=== PATIENT | female | born 1930 | race African-American/Black ===

== ENCOUNTER 2016-11-15 19:45 | Inpatient (IN) | payer MEDICARE, OTHER ==
[~2016-11-15] VITALS: Ht 160 cm; Wt 85.3 kg
[2016-11-16] VITALS: BP 172/76
[2016-11-16] MEDS ORDERED: ASPIR 8181 MG ORAL (00:11)
[2016-11-16] MEDS ORDERED: VITAMIN D400 INTLU ORAL (00:11)
[2016-11-16] MEDS ORDERED: CARVEDILOL6.25 MG ORAL (00:11)
[2016-11-16] MEDS ORDERED: FUROSEMIDE20 M1 ORAL (00:11)
[2016-11-16] MEDS ORDERED: LISINOPRIL40 MG ORAL (00:11)
[2016-11-16] MEDS ORDERED: PREVACID30 MG ORAL (00:11)
[2016-11-16] MEDS ORDERED: PLAVIX75 MG ORAL (00:11)
[2016-11-16] MEDS ORDERED: COREG12.5 MG ORAL (00:11)
[2016-11-16] MEDS ORDERED: LATANOPROST2.5 ML BOTH EYES (00:11)
[2016-11-16] MEDS ORDERED: BRIMONIDINE TART5 ML BOTH EYES (00:11)
[2016-11-16 04:00] VITALS: BP 138/68
[2016-11-16 07:28] LABS: TROPONIN I < 0.30 ng/mL (<=0.30)
[2016-11-16 07:35] LABS: BASOPHILS % (AUTO) 1.3 % (0.0-2.0); EOSINOPHILS % (AUTO) 4.4 % (0.0-3.0); LYMPHOCYTES % (AUTO) 34.9 % (20.0-45.0); MEAN CORPUSCULAR HEMOGLOBIN 24.2 PG (27.0-31.0); MEAN CORPUSCULAR HGB CONC 30.2 G/DL (32.0-36.0); MEAN CORPUSCULAR VOLUME 80 FL (80-99); MEAN PLATELET VOLUME 4.8 FL (6.5-10.1); MONOCYTES % (AUTO) 12.1 % (1.0-10.0); NEUTROPHILS % (AUTO) 47.3 % (45.0-75.0); PLATELET COUNT 306 K/UL (150-450); RED BLOOD COUNT 4.23 M/UL (4.20-5.40); RED CELL DISTRIBUTION WIDTH 16.2 % (11.6-14.8); WHITE BLOOD COUNT 4.7 K/UL (4.8-10.8)
[2016-11-16 07:43] LABS: ALANINE AMINOTRANSFERASE 7 U/L (3-33); ALBUMIN/GLOBULIN RATIO 1.2 (1.0-2.7); ANION GAP 13 (5-15); ASPARTATE AMINO TRANSFERASE 13 U/L (5-40); CALCIUM 9.6 mg/dL (8.6-10.2); CARBON DIOXIDE 24 mEQ/L (20-30); CHLORIDE 102 mEQ/L (98-107); CHOLESTEROL 153 mg/dL (< 200); CHOLESTEROL/HDL RATIO 3.2 (3.3-4.4); CREATININE 1.2 mg/dL (0.5-0.9); HEMOLYSIS 2; LDL CHOLESTEROL (CALC.) 86 mg/dL (60-99); PHOSPHORUS 3.6 mg/dL (2.5-4.8); POTASSIUM 4.3 mEQ/L (3.4-4.9); SODIUM 139 mEQ/L (135-145); TOTAL PROTEIN 6.6 g/dL (6.6-8.7)
[2016-11-16 08:37] VITALS: BP 135/64
[2016-11-16] MEDS: Aspirin EC 81mg tab ORAL SCH (08:44)
[2016-11-16] MEDS: Carvedilol 12.5mg tab ORAL SCH (08:44)
[2016-11-16] MEDS: Lisinopril 20mg tab ORAL SCH (08:45)
[2016-11-16] MEDS: Brimonidine 0.2% Opth Sol BOTH EYES SCH (11:23)
--- NOTE | 2016-11-16 11:54 | History & Physical ---
History and Physical History & Physicial Dictated for Int Med-Dr Simmons no. [id number]. ETHAN NAM Nov 16, 2016 11:54
[2016-11-16 12:31] VITALS: BP 134/67
--- NOTE | 2016-11-16 14:57 | Consultation ---
History of Present Illness General Date patient seen: Nov 16, 2016 Reason for Consultation: inpatient manageemnt Present Illness HPI 86 year old female with hx of CAD, [place], TIA was [place] to [facility] [place] of flaccid face. She was thought to have TIA /CVA [place] [facility] [place] she is awake, comfortable and facial dropping has resolved meanwhile. Allergies: Coded Allergies: MOXIFLOXACIN (Verified Allergy, Unknown, 11/16/16) Medication History Scheduled Aspirin* (Aspir 81*), 81 MG ORAL DAILY, (Reported) Brimonidine Tartrate* (Alphagan*), 1 DROP BOTH EYES DAILY, (Reported) Clopidogrel Bisulfate* (Plavix*), 75 MG ORAL DAILY, (Reported) Furosemide* (Lasix*), 20 MG ORAL DAILY, (Reported) Lansoprazole* (Prevacid*), 30 MG ORAL DAILY, (Reported) Latanoprost* (Xalatan*), 1 DROP BOTH EYES BEDTIME, (Reported) Lisinopril* (Lisinopril*), 40 MG ORAL DAILY, (Reported) Vitamin D (Vitamin D3), 1,000 UNITS ORAL DAILY, (Reported) Miscellaneous Medications Carvedilol (Coreg), 12.5 MG ORAL, (Reported) Carvedilol* (Carvedilol*), 6.25 MG ORAL, (Reported) Patient History Healthcare decision maker Resuscitation status Full Code Advanced Directive on File No Past Medical/Surgical History Past Medical/Surgical History: (1) Hx of CABG (2) History of CVA (cerebrovascular accident) (3) HTN (hypertension) (4) Transient ischemic attack (TIA) Review of Systems All Other Systems: negative except mentioned in HPI Physical Exam General Appearance: WD/WN, lethargic Lines, tubes and drains: peripheral HEENT: normocephalic, atraumatic Neck: non-tender, normal alignment Respiratory/Chest: chest wall non-tender, lungs clear Breasts: no masses Cardiovascular/Chest: normal rate, regular rhythm Abdomen: normal bowel sounds, non tender Genitourinary/Rectal: normal genital exam, normal rectal exam Extremities: normal range of motion Skin Exam: normal pigmentation Last 24 Hour Vital Signs Date Time Temp Pulse Resp B/P (MAP) Pulse Ox O2 Delivery O2 Flow Rate FiO2 11/16/16 12:31 97.2 61 18 134/67 98 Room Air 11/16/16 08:45 135/64 11/16/16 08:44 95 135/64 11/16/16 08:37 97.5 95 18 135/64 97 Room Air 11/16/16 04:43 62 11/16/16 04:00 97.9 65 20 138/68 100 Room Air 11/16/16 00:00 97.5 86 20 172/76 100 Room Air 11/16/16 00:00 97.5 74 20 172/76 100 Room Air 11/15/16 23:15 78 Intake and Output 11/16/16 11/17/16 19:00 07:00 Intake Total 120 ml Balance 120 ml Intake Oral 120 ml # Voids 1 Laboratory Tests Test 11/16/16 05:35 White Blood Count 4.7 K/UL (4.8-10.8) L Red Blood Count 4.23 M/UL (4.20-5.40) Hemoglobin 10.2 G/DL (12.0-16.0) L Hematocrit 33.9 % (37.0-47.0) L Mean Corpuscular Volume 80 FL (80-99) Mean Corpuscular Hemoglobin 24.2 PG (27.0-31.0) L Mean Corpuscular Hemoglobin Concent 30.2 G/DL (32.0-36.0) L Red Cell Distribution Width 16.2 % (11.6-14.8) H Platelet Count 306 K/UL (150-450) Mean Platelet Volume 4.8 FL (6.5-10.1) L Neutrophils (%) (Auto) 47.3 % (45.0-75.0) Lymphocytes (%) (Auto) 34.9 % (20.0-45.0) Monocytes (%) (Auto) 12.1 % (1.0-10.0) H Eosinophils (%) (Auto) 4.4 % (0.0-3.0) H Basophils (%) (Auto) 1.3 % (0.0-2.0) Sodium Level 139 mEQ/L (135-145) Potassium Level 4.3 mEQ/L (3.4-4.9) Chloride Level 102 mEQ/L (98-107) Carbon Dioxide Level 24 mEQ/L (20-30) Anion Gap 13 (5-15) Blood Urea Nitrogen 26 mg/dL (7-23) H Creatinine 1.2 mg/dL (0.5-0.9) H Estimat Glomerular Filtration Rate mL/min (>60) Glucose Level 99 mg/dL (74-106) Calcium Level 9.6 mg/dL (8.6-10.2) Phosphorus Level 3.6 mg/dL (2.5-4.8) Magnesium Level 2.0 mg/dL (1.7-2.5) Total Bilirubin 0.3 mg/dL (0.0-1.2) Aspartate Amino Transf (AST/SGOT) 13 U/L (5-40) Alanine Aminotransferase (ALT/SGPT) 7 U/L (3-33) Alkaline Phosphatase 83 U/L (35-104) Troponin I < 0.30 ng/mL (<=0.30) Total Protein 6.6 g/dL (6.6-8.7) Albumin 3.6 g/dL (3.5-5.2) Globulin 3.0 g/dL Albumin/Globulin Ratio 1.2 (1.0-2.7) Triglycerides Level 95 mg/dL (< 150) Cholesterol Level 153 mg/dL (< 200) LDL Cholesterol 86 mg/dL (60-99) HDL Cholesterol 48 mg/dL (> 60) Cholesterol/HDL Ratio 3.2 (3.3-4.4) L Height (Feet): 5 Height (Inches): 3.00 Weight (Pounds): 188 Medications Current Medications Medications (Trade) Dose Ordered Sig/Jose Route PRN Reason Start Time Stop Time Status Last Admin Dose Admin Acetaminophen (Tylenol) 650 mg Q6H PRN ORAL Mild Pain/Temp > 100.5 11/16/16 00:15 12/16/16 00:14 Aspirin (Ecotrin) 81 mg DAILY ORAL 11/16/16 09:00 12/16/16 08:59 11/16/16 08:44 Atorvastatin Calcium (Lipitor) 80 mg BEDTIME ORAL 11/16/16 21:00 12/16/16 20:59 Brimonidine Tartrate (Alphagan) 1 drop DAILY BOTH EYES 11/16/16 09:00 12/16/16 08:59 11/16/16 11:23 Carvedilol (Coreg) 6.25 mg QHS ORAL 11/16/16 21:00 12/16/16 20:59 Carvedilol (Coreg) 12.5 mg DAILY ORAL 11/16/16 09:00 12/16/16 08:59 11/16/16 08:44 Clopidogrel Bisulfate (Plavix) 75 mg DAILY ORAL 11/16/16 09:00 12/16/16 08:59 11/16/16 08:44 Furosemide (Lasix) 20 mg DAILY ORAL 11/16/16 09:00 12/16/16 08:59 11/16/16 08:44 Latanoprost (Xalatan) 1 drop BEDTIME BOTH EYES 11/16/16 21:00 12/16/16 20:59 Lisinopril (Prinivil) 40 mg DAILY ORAL 11/16/16 09:00 12/16/16 08:59 11/16/16 08:45 Ondansetron HCl (Zofran) 4 mg Q6H PRN IVP Nausea & Vomiting 11/16/16 00:15 12/16/16 00:14 Pantoprazole (Protonix) 40 mg ACBREAKFAST ORAL 11/16/16 06:30 12/16/16 06:29 11/16/16 06:18 Assessment/Plan Problem List: (1) Acute encephalopathy ICD Codes: G93.40 - Encephalopathy, unspecified SNOMED: 9729708 (2) Cerebrovascular accident ICD Codes: I63.9 - Cerebral infarction, unspecified SNOMED: 363984463 (3) Hx of CABG ICD Codes: Z95.1 - Presence of aortocoronary bypass graft SNOMED: 867760335, 163080061 (4) HTN (hypertension) ICD Codes: I10 - Essential (primary) hypertension SNOMED: 41184553 (5) Transient ischemic attack (TIA) ICD Codes: G45.9 - Transient cerebral ischemic attack, unspecified SNOMED: 821375848, 829780849 (6) Uncontrolled hypertension ICD Codes: I10 - Essential (primary) hypertension SNOMED: 21252475 Assessment/Plan telemetry monitoring 2d echo doppler of carotid artery monitor BP ADARSH SHEPPARD Nov 16, 2016 14:57
--- NOTE | 2016-11-16 15:25 | Cardiology Report ---
APPROVED REPORT EXAM: Two-dimensional and M-mode echocardiogram with Doppler and color Doppler. INDICATION Trans ischemic attack M-Mode DIMENSIONS IVSd1.3 (0.7-1.1cm)Left Atrium (MM)3.5 (1.6-4.0cm) LVDd4.6 (3.5-5.6cm)Aortic Root2.7 (2.0-3.7cm) PWd1.3 (0.7-1.1cm)Aortic Cusp Exc.1.8 (1.5-2.0cm) LVDs2.6 (2.5-4.0cm) PWs1.5 cm Technically difficult study due to poor acoustic windows. Normal left ventricular chamber size, systolic function and wall motion. Left ventricular ejection fraction estimated to be 60-65%. Mild left ventricular hypertrophy. No evidence of pericardial fat or effusion. Right cardiac chamber sizes are within normal limits. Moderate left atrial enlargement by 2D. Focal aortic valve sclerosis with adequate cusp excursion Thickened mitral valve leaflets with normal excursion. Mitral annulus and aortic root calcification. Pulmonic valve not well visualized. Normal tricuspid valve structure. IVC is normal in size with physiologic collapse. A color flow and spectral Doppler study was performed and revealed: Trace aortic regurgitation. Trace mitral regurgitation. Normal left ventricular diastolic function. Trace tricuspid regurgitation. Tricuspid systolic velocities suggests peak right ventricular systolic pressure of 25 mmHg
--- NOTE | 2016-11-16 15:48 | Cardiology Report ---
APPROVED REPORT EKG Measurement Heart [id number] Normal sinus rhythm Left axis deviation Right bundle branch block T wave abnormality, consider inferolateral ischemia Abnormal ECG
[2016-11-16 16:07] VITALS: BP 125/62
--- NOTE | 2016-11-16 16:11 | Diagnostic Imaging Report ---
Indication: Altered mental status and weakness Technique: sagittal T1 fast spin echo, axial T1 FLAIR, axial T2 FLAIR, axial T2 FS PROPELLER, axial T2* GRE, axial diffusion weighted images. ADC and exponential ADC maps generated Comparison: None Findings: No abnormal areas of restricted diffusion to suggest acute infarction. No acute hemorrhage or edema. No mass effect nor midline shift. There is mild age-related enlargement of ventricles and extra axial CSF spaces. There are some periventricular T2 white matter hyperintensities. Tiny old lacunar infarct is seen within the periphery of the right cerebellar hemisphere. Visualized orbits and sinuses are unremarkable. Impression: Chronic and age-related changes, as described. Negative for acute intracranial bleed, mass effect, or infarct.
[2016-11-16 20:10] VITALS: BP 143/62
[2016-11-16] MEDS ORDERED: Carvedilol 6.25mg Tab ORAL SCH (21:00)
[2016-11-16] MEDS ORDERED: Atorvastatin 80mg tab ORAL SCH (21:00)
--- NOTE | 2016-11-16 22:45 | History and Physical Report ---
DATE OF ADMISSION: 11/15/2016 CHIEF COMPLAINT: The patient is an 86-year-old female, who presents with chief complaint of left facial weakness. HISTORY OF PRESENT ILLNESS: The patient has history of transient ischemic attack in July 2016. This was treated at [facility]. The patient has no residual effects of the TIA at that time. The patient presented to [facility] on 11/15/2016. The patient complained of several hour history of "tugging" in her left face. The patient states her face was not symmetrical in the mirror. The patient was transferred to [facility] for insurance purposes. The patient was admitted for left facial weakness to rule out transient ischemic attack. PAST MEDICAL HISTORY: Significant for: 1. Transient ischemic attack in July 2016 as above. 2. Hypertension. 3. Coronary artery disease, status post myocardial infarction at age 51. PAST SURGICAL HISTORY: Significant for coronary artery bypass graft in 1999. CURRENT MEDICATIONS: 1. Aspirin 81 mg one tablet p.o. daily. 2. Alphagan 0.1% ophthalmic drops one drop in both eyes every morning. 3. Xalatan one drop in both eyes nightly. 4. Lasix 20 mg one tablet p.o. daily. 5. Coreg 12.5 mg every morning and 6.25 mg every evening. 6. Lisinopril 40 mg one tablet p.o. daily. 7. Plavix 75 mg one tablet p.o. daily. 8. Prevacid 30 mg one tablet p.o. daily. 9. Vitamin D3 1000 units daily. ALLERGIES: To Avelox, which causes rash. SOCIAL HISTORY: The patient is single and lives with her adult daughter. The patient denies tobacco or alcohol use. REVIEW OF SYSTEMS: Constitutional: The patient denies weight loss or weight gain. The patient denies fevers or chills. HEENT: The patient denies ear or throat pain. The patient denies headache. Cardiovascular: The patient denies palpitation or chest pain. Chest: The patient denies wheeze or shortness of breath. Abdominal: The patient denies nausea, vomiting, diarrhea, or constipation. Genitourinary: The patient denies dysuria or increased frequency of urination. Neuromuscular: The patient complains of left facial weakness as above. The patient denies seizures or generalized weakness. PHYSICAL EXAMINATION: VITAL SIGNS: Temperature 97.5 degrees, respirations 20, pulse 74 to 86, and blood pressure 172/76. GENERAL: The patient is a well-developed, well-nourished, female, in no apparent distress. HEENT: Eyes: Pupils are equal and responsive to light and accommodation. Extraocular movements are intact. NECK: Supple without lymphadenopathy. CHEST: Lungs are clear to auscultation bilaterally without wheezes or rales. CARDIOVASCULAR: Regular rhythm and rate. S1 and S2 are normal without murmurs, rubs, or gallops. ABDOMEN: Soft, nontender, and nondistended. Positive bowel sounds. No evidence of hepatosplenomegaly. Currently, no rebound or guarding noted. EXTREMITIES: Negative for clubbing, cyanosis, or edema. RECTAL: Refused. GENITAL: Refused. NEUROLOGIC: Cranial nerves II to XII are grossly intact without focal deficits. Motor strength is 5/5 bilaterally. Deep tendon reflexes 2+ plantar. Smile is now symmetric. LABORATORY STUDIES: From [place], WBC 4.6, hemoglobin 10.7, hematocrit 32.9, and platelets 307,000. Sodium 134, potassium 4.7, chloride 103, CO2 23, BUN 25, creatinine 1.3, and glucose was 100. A CT scan of the brain was reported as no acute hemorrhage or infarct. ASSESSMENT: This is an 86-year-old female. 1. Left facial weakness. 2. History of cerebrovascular disease. 3. History of transient ischemic attack. 4. Coronary artery disease. 5. Hypertension. TREATMENT: 1. Left facial weakness. An MRI of the brain is pending. Neurology consultation has been obtained with Dr. Mohamud. This appears to be a transient ischemic attack versus cerebrovascular accident. An MRI has been ordered to rule out cerebrovascular accident. Carotid duplex and Dopplers are pending. An echocardiogram is pending. 2. Coronary artery disease. A Cardiology consultation has been obtained. Initial troponin level was normal. 3. Hypertension. Continue Coreg as above. Anuel Lea M.D. DR: Kandace JOB#: [id number] CC:
[2016-11-17] VITALS: BP 146/75
[2016-11-17 04:00] VITALS: BP 141/73
[2016-11-17 08:00] VITALS: BP 123/58
[2016-11-17] MEDS: Carvedilol 12.5mg tab ORAL SCH (08:22)
[2016-11-17] MEDS: Aspirin EC 81mg tab ORAL SCH (08:24)
[2016-11-17] MEDS: Lisinopril 20mg tab ORAL SCH (08:27)
[2016-11-17] MEDS: Brimonidine 0.2% Opth Sol BOTH EYES SCH (08:34)
[2016-11-17 08:47] LABS: BASOPHILS % (AUTO) 1.3 % (0.0-2.0); EOSINOPHILS % (AUTO) 3.9 % (0.0-3.0); LYMPHOCYTES % (AUTO) 40.3 % (20.0-45.0); MEAN CORPUSCULAR HEMOGLOBIN 25.7 PG (27.0-31.0); MEAN CORPUSCULAR HGB CONC 31.4 G/DL (32.0-36.0); MEAN CORPUSCULAR VOLUME 82 FL (80-99); NEUTROPHILS % (AUTO) 44.4 % (45.0-75.0); PLATELET COUNT 292 K/UL (150-450); RED BLOOD COUNT 4.13 M/UL (4.20-5.40); RED CELL DISTRIBUTION WIDTH 16.9 % (11.6-14.8); WHITE BLOOD COUNT 4.1 K/UL (4.8-10.8)
[2016-11-17 09:12] LABS: ANION GAP 11 (5-15); CALCIUM 9.7 mg/dL (8.6-10.2); CARBON DIOXIDE 24 mEQ/L (20-30); CHLORIDE 103 mEQ/L (98-107); CREATININE 1.2 mg/dL (0.5-0.9); HEMOLYSIS 1; POTASSIUM 4.1 mEQ/L (3.4-4.9); SODIUM 138 mEQ/L (135-145)
[2016-11-17 09:41] LABS: LACTATE DEHYDROGENASE 162 U/L (135-230)
[2016-11-17 09:42] LABS: HEMOLYSIS 2; IRON 29 ug/dL (37-145); TOTAL IRON BINDING CAPACITY 355 ug/dL (250-400)
[2016-11-17 09:43] LABS: TROPONIN I < 0.30 ng/mL (<=0.30)
[2016-11-17 09:59] LABS: ERYTHROCYTE SEDIMENTATION RATE 30 MM/HR (0-42)
[2016-11-17 10:13] LABS: RETICULOCYTE COUNT 1.3 % (0.0-2.0)
[2016-11-17 10:21] LABS: BASOPHILS % (MANUAL) 1 % (0-2); EOSINOPHILS % (MANUAL) 2 % (0-3); LYMPHOCYTES % (MANUAL) 43 % (20-45); NEUTROPHILS % (MANUAL) 49 % (45-75); TOTAL CELLS COUNTED 100
[2016-11-17 10:22] LABS: ANISOCYTOSIS 1+; BAND NEUTROPHILS % (MANUAL) 0 % (0-8); HYPOCHROMASIA 1+; PLATELET ESTIMATE ADEQUATE; PLATELET MORPHOLOGY NORMAL
[2016-11-17 10:44] LABS: PATH BLOOD SMEAR/OMC SENT TO PATHOLOGIST
[2016-11-17 12:00] VITALS: BP 130/55
--- NOTE | 2016-11-17 13:13 | Pulmonology Progress Note ---
Assessment/Plan Problems: (1) Acute encephalopathy (2) Cerebrovascular accident (3) Hx of CABG (4) HTN (hypertension) (5) Transient ischemic attack (TIA) (6) Uncontrolled hypertension (7) Anemia Assessment/Plan pt/ot monitor bp anemia w/u in process OB pending neuro consult appreciated Subjective ROS Limited/Unobtainable: No Constitutional: Reports: no symptoms HEENT: Repors: no symptoms Allergies: Coded Allergies: MOXIFLOXACIN (Verified Allergy, Unknown, 11/16/16) Objective Last 24 Hour Vital Signs Date Time Temp Pulse Resp B/P (MAP) Pulse Ox O2 Delivery O2 Flow Rate FiO2 11/17/16 12:00 97.8 56 18 130/55 100 Room Air 11/17/16 08:27 123/58 11/17/16 08:22 65 123/58 11/17/16 08:00 97.5 65 18 123/58 100 Room Air 11/17/16 04:00 54 11/17/16 04:00 97.7 66 20 141/73 98 Room Air 11/17/16 00:00 71 11/17/16 00:00 97.9 68 18 146/75 97 Room Air 11/16/16 20:10 97.9 64 19 143/62 98 Room Air 11/16/16 20:09 63 125/62 11/16/16 16:07 97.2 63 18 125/62 99 Room Air 11/16/16 16:00 62 Intake and Output 11/17/16 11/18/16 19:00 07:00 Intake Total 350 ml Balance 350 ml Intake Oral 350 ml # Voids 1 # Bowel Movements 1 General Appearance: WD/WN HEENT: normocephalic, atraumatic Respiratory/Chest: chest wall non-tender, lungs clear Breasts: no masses Cardiovascular: normal peripheral pulses, normal rate Abdomen: normal bowel sounds, soft, non tender Genitourinary: normal external genitalia Extremities: no cyanosis Skin: no rash 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, no motor/sensory deficits Lymphatic: no neck adenopathy Laboratory Tests 11/17/16 07:40: White Blood Count 4.1L, Red Blood Count 4.13L, Hemoglobin 10.6L, Hematocrit 33.7L, Mean Corpuscular Volume 82, Mean Corpuscular Hemoglobin 25.7L, Mean Corpuscular Hemoglobin Concent 31.4L, Red Cell Distribution Width 16.9H, Platelet Count 292, Mean Platelet Volume 5.0L, Neutrophils (%) (Auto) 44.4L, Lymphocytes (%) (Auto) 40.3, Monocytes (%) (Auto) 10.0, Eosinophils (%) (Auto) 3.9H, Basophils (%) (Auto) 1.3, Differential Total Cells Counted 100, Neutrophils % (Manual) 49, Lymphocytes % (Manual) 43, Monocytes % (Manual) 5, Eosinophils % (Manual) 2, Basophils % (Manual) 1, Band Neutrophils 0, Platelet Estimate Adequate, Platelet Morphology Normal, Hypochromasia 1+, Anisocytosis 1+ , Erythrocyte Sedimentation Rate 30, Reticulocyte Count 1.3, Prothrombin Time 10.0, Prothromb Time International Ratio 1.0, Activated Partial Thromboplast Time 25, Sodium Level 138, Potassium Level 4.1, Chloride Level 103, Carbon Dioxide Level 24, Anion Gap 11, Blood Urea Nitrogen 27H, Creatinine 1.2H, Estimat Glomerular Filtration Rate , Glucose Level 135H, Calcium Level 9.7, Iron Level 29L, Total Iron Binding Capacity 355, Percent Iron Saturation 8L, Unsaturated Iron Binding 326, Lactate Dehydrogenase 162, Troponin I < 0.30, Carcinoembryonic Antigen 1.8, Vitamin B12 Level 482, Folate [Pending] 11/17/16 11:00: Stool Occult Blood [Pending] Current Medications Medications (Trade) Dose Ordered Sig/Jose Route PRN Reason Start Time Stop Time Status Last Admin Dose Admin Acetaminophen (Tylenol) 650 mg Q6H PRN ORAL Mild Pain/Temp > 100.5 11/16/16 00:15 12/16/16 00:14 Aspirin (Ecotrin) 81 mg DAILY ORAL 11/16/16 09:00 12/16/16 08:59 11/17/16 08:24 Atorvastatin Calcium (Lipitor) 80 mg BEDTIME ORAL 11/16/16 21:00 12/16/16 20:59 11/16/16 20:09 Brimonidine Tartrate (Alphagan) 1 drop DAILY BOTH EYES 11/16/16 09:00 12/16/16 08:59 11/17/16 08:34 Carvedilol (Coreg) 6.25 mg QHS ORAL 11/16/16 21:00 12/16/16 20:59 11/16/16 20:09 Carvedilol (Coreg) 12.5 mg DAILY ORAL 11/16/16 09:00 12/16/16 08:59 11/17/16 08:22 Clopidogrel Bisulfate (Plavix) 75 mg DAILY ORAL 11/16/16 09:00 12/16/16 08:59 11/17/16 08:26 Furosemide (Lasix) 20 mg DAILY ORAL 11/16/16 09:00 12/16/16 08:59 11/17/16 08:25 Latanoprost (Xalatan) 1 drop BEDTIME BOTH EYES 11/16/16 21:00 12/16/16 20:59 11/16/16 20:29 Lisinopril (Prinivil) 40 mg DAILY ORAL 11/16/16 09:00 12/16/16 08:59 11/17/16 08:27 Ondansetron HCl (Zofran) 4 mg Q6H PRN IVP Nausea & Vomiting 11/16/16 00:15 12/16/16 00:14 Pantoprazole (Protonix) 40 mg ACBREAKFAST ORAL 11/16/16 06:30 12/16/16 06:29 11/17/16 05:36 ADARSH SHEPPARD Nov 17, 2016 13:13
--- NOTE | 2016-11-17 13:17 | Pulmonology Progress Note ---
Assessment/Plan Problems: (1) Acute encephalopathy (2) Cerebrovascular accident (3) Hx of CABG (4) HTN (hypertension) (5) Transient ischemic attack (TIA) (6) Uncontrolled hypertension (7) Anemia Assessment/Plan pt/ot monitor bp anemia w/u in process OB pending neuro consult appreciated med/surg MRI of brain Impression: Chronic and age-related changes, as described. Negative for acute intracranial bleed, mass effect, or infarct. Subjective ROS Limited/Unobtainable: No Constitutional: Reports: no symptoms HEENT: Repors: no symptoms Respiratory: Reports: no symptoms Allergies: Coded Allergies: MOXIFLOXACIN (Verified Allergy, Unknown, 11/16/16) Objective Last 24 Hour Vital Signs Date Time Temp Pulse Resp B/P (MAP) Pulse Ox O2 Delivery O2 Flow Rate FiO2 11/17/16 12:00 97.8 56 18 130/55 100 Room Air 11/17/16 08:27 123/58 11/17/16 08:22 65 123/58 11/17/16 08:00 97.5 65 18 123/58 100 Room Air 11/17/16 04:00 54 11/17/16 04:00 97.7 66 20 141/73 98 Room Air 11/17/16 00:00 71 11/17/16 00:00 97.9 68 18 146/75 97 Room Air 11/16/16 20:10 97.9 64 19 143/62 98 Room Air 11/16/16 20:09 63 125/62 11/16/16 16:07 97.2 63 18 125/62 99 Room Air 11/16/16 16:00 62 Intake and Output 11/17/16 11/18/16 19:00 07:00 Intake Total 350 ml Balance 350 ml Intake Oral 350 ml # Voids 1 # Bowel Movements 1 General Appearance: WD/WN HEENT: normocephalic, atraumatic Respiratory/Chest: chest wall non-tender, lungs clear, normal breath sounds Breasts: no masses Cardiovascular: normal peripheral pulses Abdomen: normal bowel sounds Genitourinary: normal external genitalia Extremities: no cyanosis Skin: no rash Lymphatic: no neck adenopathy Laboratory Tests 11/17/16 07:40: White Blood Count 4.1L, Red Blood Count 4.13L, Hemoglobin 10.6L, Hematocrit 33.7L, Mean Corpuscular Volume 82, Mean Corpuscular Hemoglobin 25.7L, Mean Corpuscular Hemoglobin Concent 31.4L, Red Cell Distribution Width 16.9H, Platelet Count 292, Mean Platelet Volume 5.0L, Neutrophils (%) (Auto) 44.4L, Lymphocytes (%) (Auto) 40.3, Monocytes (%) (Auto) 10.0, Eosinophils (%) (Auto) 3.9H, Basophils (%) (Auto) 1.3, Differential Total Cells Counted 100, Neutrophils % (Manual) 49, Lymphocytes % (Manual) 43, Monocytes % (Manual) 5, Eosinophils % (Manual) 2, Basophils % (Manual) 1, Band Neutrophils 0, Platelet Estimate Adequate, Platelet Morphology Normal, Hypochromasia 1+, Anisocytosis 1+ , Erythrocyte Sedimentation Rate 30, Reticulocyte Count 1.3, Prothrombin Time 10.0, Prothromb Time International Ratio 1.0, Activated Partial Thromboplast Time 25, Sodium Level 138, Potassium Level 4.1, Chloride Level 103, Carbon Dioxide Level 24, Anion Gap 11, Blood Urea Nitrogen 27H, Creatinine 1.2H, Estimat Glomerular Filtration Rate , Glucose Level 135H, Calcium Level 9.7, Iron Level 29L, Total Iron Binding Capacity 355, Percent Iron Saturation 8L, Unsaturated Iron Binding 326, Lactate Dehydrogenase 162, Troponin I < 0.30, Carcinoembryonic Antigen 1.8, Vitamin B12 Level 482, Folate [Pending] 11/17/16 11:00: Stool Occult Blood Negative Current Medications Medications (Trade) Dose Ordered Sig/Jose Route PRN Reason Start Time Stop Time Status Last Admin Dose Admin Acetaminophen (Tylenol) 650 mg Q6H PRN ORAL Mild Pain/Temp > 100.5 11/16/16 00:15 12/16/16 00:14 Aspirin (Ecotrin) 81 mg DAILY ORAL 11/16/16 09:00 12/16/16 08:59 11/17/16 08:24 Atorvastatin Calcium (Lipitor) 80 mg BEDTIME ORAL 11/16/16 21:00 12/16/16 20:59 11/16/16 20:09 Brimonidine Tartrate (Alphagan) 1 drop DAILY BOTH EYES 11/16/16 09:00 12/16/16 08:59 11/17/16 08:34 Carvedilol (Coreg) 6.25 mg QHS ORAL 11/16/16 21:00 12/16/16 20:59 11/16/16 20:09 Carvedilol (Coreg) 12.5 mg DAILY ORAL 11/16/16 09:00 12/16/16 08:59 11/17/16 08:22 Clopidogrel Bisulfate (Plavix) 75 mg DAILY ORAL 11/16/16 09:00 12/16/16 08:59 11/17/16 08:26 Furosemide (Lasix) 20 mg DAILY ORAL 11/16/16 09:00 12/16/16 08:59 11/17/16 08:25 Latanoprost (Xalatan) 1 drop BEDTIME BOTH EYES 11/16/16 21:00 12/16/16 20:59 11/16/16 20:29 Lisinopril (Prinivil) 40 mg DAILY ORAL 11/16/16 09:00 12/16/16 08:59 11/17/16 08:27 Ondansetron HCl (Zofran) 4 mg Q6H PRN IVP Nausea & Vomiting 11/16/16 00:15 12/16/16 00:14 Pantoprazole (Protonix) 40 mg ACBREAKFAST ORAL 11/16/16 06:30 12/16/16 06:29 11/17/16 05:36 ADARSH SHEPPARD Nov 17, 2016 13:17
--- NOTE | 2016-11-17 14:09 | Neurology Progress Note ---
Interim History Interim History ROS Limited/Unobtainable: No Objective Physical Exam Last Vital Signs Date Time Temp Pulse Resp B/P (MAP) Pulse Ox O2 Delivery O2 Flow Rate FiO2 11/17/16 12:00 97.8 56 18 130/55 100 Room Air Laboratory Tests Test 11/17/16 07:40 11/17/16 11:00 White Blood Count 4.1 K/UL (4.8-10.8) L Red Blood Count 4.13 M/UL (4.20-5.40) L Hemoglobin 10.6 G/DL (12.0-16.0) L Hematocrit 33.7 % (37.0-47.0) L Mean Corpuscular Volume 82 FL (80-99) Mean Corpuscular Hemoglobin 25.7 PG (27.0-31.0) L Mean Corpuscular Hemoglobin Concent 31.4 G/DL (32.0-36.0) L Red Cell Distribution Width 16.9 % (11.6-14.8) H Platelet Count 292 K/UL (150-450) Mean Platelet Volume 5.0 FL (6.5-10.1) L Neutrophils (%) (Auto) 44.4 % (45.0-75.0) L Lymphocytes (%) (Auto) 40.3 % (20.0-45.0) Monocytes (%) (Auto) 10.0 % (1.0-10.0) Eosinophils (%) (Auto) 3.9 % (0.0-3.0) H Basophils (%) (Auto) 1.3 % (0.0-2.0) Differential Total Cells Counted 100 Neutrophils % (Manual) 49 % (45-75) Lymphocytes % (Manual) 43 % (20-45) Monocytes % (Manual) 5 % (1-10) Eosinophils % (Manual) 2 % (0-3) Basophils % (Manual) 1 % (0-2) Band Neutrophils 0 % (0-8) Platelet Estimate Adequate Platelet Morphology Normal Hypochromasia 1+ Anisocytosis 1+ Erythrocyte Sedimentation Rate 30 MM/HR (0-42) Reticulocyte Count 1.3 % (0.0-2.0) Prothrombin Time 10.0 SEC (9.30-11.50) Prothromb Time International Ratio 1.0 (0.9-1.1) Activated Partial Thromboplast Time 25 SEC (23-33) Sodium Level 138 mEQ/L (135-145) Potassium Level 4.1 mEQ/L (3.4-4.9) Chloride Level 103 mEQ/L (98-107) Carbon Dioxide Level 24 mEQ/L (20-30) Anion Gap 11 (5-15) Blood Urea Nitrogen 27 mg/dL (7-23) H Creatinine 1.2 mg/dL (0.5-0.9) H Estimat Glomerular Filtration Rate mL/min (>60) Glucose Level 135 mg/dL (74-106) H Calcium Level 9.7 mg/dL (8.6-10.2) Iron Level 29 ug/dL (37-145) L Total Iron Binding Capacity 355 ug/dL (250-400) Percent Iron Saturation 8 % (15-50) L Unsaturated Iron Binding 326 ug/dL (112-346) Lactate Dehydrogenase 162 U/L (135-230) Troponin I < 0.30 ng/mL (<=0.30) Carcinoembryonic Antigen 1.8 ng/mL Vitamin B12 Level 482 pg/mL (211-946) Folate Pending Stool Occult Blood Negative (NEGATIVE) Impression/Recommendations Recommendations # [id number] OSVALDO LE Nov 17, 2016 14:09
--- NOTE | 2016-11-17 14:42 | Diagnostic Imaging Report ---
APPROVED REPORT CPT Code: 10887 Vascular Symptoms Comments: Weakness Doppler Spectral Velocity Analysis RightLeft arteries. The Doppler spectral flow analysis indicates the degree of stenosis is minimal (40%) in the common carotid artery, mild (40%) in the internal carotid artery, and (40%) in the external carotid artery. VERTEBRAL- The vertebral artery is patent, without evidence of stenosis or steal. arteries. The Doppler spectral flow analysis indicates the degree of stenosis is minimal (30%) in the common carotid artery, mild (30%) in the internal carotid artery, and (40%) in the external carotid artery. Left carotid artery is stented. VERTEBRAL- The vertebral artery is patent, without evidence of stenosis or steal.
[2016-11-17 16:00] VITALS: BP 146/67
--- NOTE | 2016-11-17 17:40 | Internal Med Progress Note ---
Subjective Date of Service: Nov 17, 2016 Physician Name Anuel Nam Attending Physician Nicholas Simmons MD Current Medications Medications (Trade) Dose Ordered Sig/Jose Route PRN Reason Start Time Stop Time Status Last Admin Dose Admin Acetaminophen (Tylenol) 650 mg Q6H PRN ORAL Mild Pain/Temp > 100.5 11/16/16 00:15 12/16/16 00:14 Aspirin (Ecotrin) 81 mg DAILY ORAL 11/16/16 09:00 12/16/16 08:59 11/17/16 08:24 Atorvastatin Calcium (Lipitor) 80 mg BEDTIME ORAL 11/16/16 21:00 12/16/16 20:59 11/16/16 20:09 Brimonidine Tartrate (Alphagan) 1 drop DAILY BOTH EYES 11/16/16 09:00 12/16/16 08:59 11/17/16 08:34 Carvedilol (Coreg) 6.25 mg QHS ORAL 11/16/16 21:00 12/16/16 20:59 11/16/16 20:09 Carvedilol (Coreg) 12.5 mg DAILY ORAL 11/16/16 09:00 12/16/16 08:59 11/17/16 08:22 Clopidogrel Bisulfate (Plavix) 75 mg DAILY ORAL 11/16/16 09:00 12/16/16 08:59 11/17/16 08:26 Furosemide (Lasix) 20 mg DAILY ORAL 11/16/16 09:00 12/16/16 08:59 11/17/16 08:25 Latanoprost (Xalatan) 1 drop BEDTIME BOTH EYES 11/16/16 21:00 12/16/16 20:59 11/16/16 20:29 Lisinopril (Prinivil) 40 mg DAILY ORAL 11/16/16 09:00 12/16/16 08:59 11/17/16 08:27 Ondansetron HCl (Zofran) 4 mg Q6H PRN IVP Nausea & Vomiting 11/16/16 00:15 12/16/16 00:14 Pantoprazole (Protonix) 40 mg ACBREAKFAST ORAL 11/16/16 06:30 12/16/16 06:29 11/17/16 05:36 Allergies: Coded Allergies: MOXIFLOXACIN (Verified Allergy, Unknown, 11/16/16) ROS Limited/Unobtainable: No Constitutional: Reports: no symptoms HEENT: Reports: no symptoms Cardiovascular: Reports: no symptoms Respiratory: Reports: no symptoms Genitourinary: Reports: no symptoms Neurologic/Psychiatric: Reports: weakness - left face Objective Last Vital Signs Date Time Temp Pulse Resp B/P (MAP) Pulse Ox O2 Delivery O2 Flow Rate FiO2 11/17/16 16:00 97.3 58 18 146/67 99 Room Air General Appearance: WD/WN, no apparent distress, alert EENT: PERRL/EOMI, normal ENT inspection Neck: non-tender, normal alignment, supple, normal inspection Cardiovascular: normal peripheral pulses, normal rate, regular rhythm, no gallop/murmur, no JVD Respiratory/Chest: chest wall non-tender, lungs clear, normal breath sounds, no respiratory distress, no accessory muscle use Abdomen: normal bowel sounds, non tender, soft, no organomegaly, no mass Extremities: normal range of motion 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, no motor/sensory deficits Laboratory Tests Test 11/17/16 07:40 11/17/16 11:00 White Blood Count 4.1 K/UL (4.8-10.8) L Red Blood Count 4.13 M/UL (4.20-5.40) L Hemoglobin 10.6 G/DL (12.0-16.0) L Hematocrit 33.7 % (37.0-47.0) L Mean Corpuscular Volume 82 FL (80-99) Mean Corpuscular Hemoglobin 25.7 PG (27.0-31.0) L Mean Corpuscular Hemoglobin Concent 31.4 G/DL (32.0-36.0) L Red Cell Distribution Width 16.9 % (11.6-14.8) H Platelet Count 292 K/UL (150-450) Mean Platelet Volume 5.0 FL (6.5-10.1) L Neutrophils (%) (Auto) 44.4 % (45.0-75.0) L Lymphocytes (%) (Auto) 40.3 % (20.0-45.0) Monocytes (%) (Auto) 10.0 % (1.0-10.0) Eosinophils (%) (Auto) 3.9 % (0.0-3.0) H Basophils (%) (Auto) 1.3 % (0.0-2.0) Differential Total Cells Counted 100 Neutrophils % (Manual) 49 % (45-75) Lymphocytes % (Manual) 43 % (20-45) Monocytes % (Manual) 5 % (1-10) Eosinophils % (Manual) 2 % (0-3) Basophils % (Manual) 1 % (0-2) Band Neutrophils 0 % (0-8) Platelet Estimate Adequate Platelet Morphology Normal Hypochromasia 1+ Anisocytosis 1+ Erythrocyte Sedimentation Rate 30 MM/HR (0-42) Reticulocyte Count 1.3 % (0.0-2.0) Prothrombin Time 10.0 SEC (9.30-11.50) Prothromb Time International Ratio 1.0 (0.9-1.1) Activated Partial Thromboplast Time 25 SEC (23-33) Sodium Level 138 mEQ/L (135-145) Potassium Level 4.1 mEQ/L (3.4-4.9) Chloride Level 103 mEQ/L (98-107) Carbon Dioxide Level 24 mEQ/L (20-30) Anion Gap 11 (5-15) Blood Urea Nitrogen 27 mg/dL (7-23) H Creatinine 1.2 mg/dL (0.5-0.9) H Estimat Glomerular Filtration Rate mL/min (>60) Glucose Level 135 mg/dL (74-106) H Calcium Level 9.7 mg/dL (8.6-10.2) Iron Level 29 ug/dL (37-145) L Total Iron Binding Capacity 355 ug/dL (250-400) Percent Iron Saturation 8 % (15-50) L Unsaturated Iron Binding 326 ug/dL (112-346) Lactate Dehydrogenase 162 U/L (135-230) Troponin I < 0.30 ng/mL (<=0.30) Carcinoembryonic Antigen 1.8 ng/mL Vitamin B12 Level 482 pg/mL (211-946) Folate Pending Stool Occult Blood Negative (NEGATIVE) Intake and Output 11/17/16 11/18/16 19:00 07:00 Intake Total 750 ml Balance 750 ml Intake Oral 750 ml # Voids 3 # Bowel Movements 1 Assessment/Plan Problem List: (1) CAD (coronary artery disease) (2) Facial weakness Assessment & Plan: Resolving. ?TIA? (3) Transient ischemic attack (TIA) Assessment & Plan: MRI brain and carotid duplex WNL. See neurology note. (4) HTN (hypertension) Assessment & Plan: Continue coreg and lisinopril. Status: not improved ANUEL NAM Nov 17, 2016 17:40
[2016-11-17 20:00] VITALS: BP 138/66
[2016-11-17] MEDS: Atorvastatin 80mg tab ORAL SCH (21:27)
[2016-11-17] MEDS: Carvedilol 6.25mg Tab ORAL SCH (21:27)
[2016-11-18] VITALS (7 sets, daily range): BP systolic 122–144; BP diastolic 58–80
--- NOTE | 2016-11-18 00:01 | Consultation ---
DATE OF CONSULTATION: 11/17/2016 NEUROLOGICAL CONSULTATION CONSULTING PHYSICIAN: Hilario Mohamud M.D. REQUESTING PHYSICIAN: Nicholas Simmons M.D. HISTORY OF PRESENT ILLNESS: This is an 86-year-old female, seen in neurological consultation to evaluate the new onset of intermittent left facial numbness. The patient informed me that on the day of admission at 3 p.m. with no obvious reason, she suddenly developed a numbness sensation in her left side of the face. She is not sure if there was any facial asymmetry, but reports no associated symptomatology. No unilateral weakness or numbness. No changes in the level of consciousness. No visual or hearing abnormalities. She had normal swallowing and she was able to eat. She became very concerned, afraid of having stroke and with this, she was sent into [facility] emergency room. The patient was stating that she was looking in a mirror and it was not found that the face was not symmetric. She came for further assessment to this hospital for the insurance purposes. Following admission, a 2D echocardiogram was obtained revealing an ejection fraction of 60% to 65%, no mural thrombi noted. Her MRI of the brain was obtained, this revealed mild age-related enlargement of ventricles. Some periventricular white matter hyperintensities and tiny old lacunar infarct in the right cerebellar hemisphere. There is no evidence of acute abnormalities. Carotid duplex study revealed no hemodynamically significant lesions. Following admission in the morning, symptoms were resolved. During the day, she had an episode of transient left facial numbness lasting about one hour. These symptoms at this time were somewhat different because numbness spread to the left side of the neck. There were no associated symptomatology. This morning, she had another episode of left facial numbness and left-sided numbness, resolved. The patient informed me that similar episode occurred in July 2016. She was taken to [facility] where she spent two days being worked up. It was concluded that the patient has a TIA. Her symptoms at that time included left facial numbness, but also some speech abnormalities, difficult to pronounce words. Symptoms completely resolved. PAST MEDICAL HISTORY: History of coronary artery disease, status post MA at age of 51, history of hypertension, and history of diabetes well controlled. She is unaware of having hyperlipidemia. CURRENT MEDICATIONS: Treatment prior to admission included aspirin, carvedilol, Plavix, Lasix, Prevacid, lisinopril, and vitamin D supplement. SOCIAL HISTORY: Lives at home with her daughter. FAMILY HISTORY: Noncontributory. REVIEW OF SYSTEMS: The patient has a history of gait abnormality, imbalance last year using cane. Denies chest pain, palpitations, or respiratory problems. Denies abdominal pain or discomfort. No urine or bowel incontinence. She has arthritis affecting both knees and ankles. History of obesity. PHYSICAL EXAMINATION: GENERAL: This is a well-developed, moderately obese female, not in acute distress, lying comfortably in bed. VITAL SIGNS: Stable, blood pressure 120/55, heart rate of 56, and afebrile. HEENT: Head, normocephalic. No evidence of trauma. Eyes, ears, and throat are clear. NECK: Supple. No meningeal signs. MUSCULOSKELETAL: Unremarkable. There are no deformities. Peripheral pulses, no deformities. Arthritic changes in both knees. Peripheral pulses 1+ and symmetric. MENTAL STATUS: Alert and oriented x3 with no evidence of aphasia or apraxia. Cognitive function normal. The patient is anxious, concerned with possible stroke. CRANIAL NERVE II: Pupils both responding to light and accommodation. Extraocular movements intact. No nystagmus. CRANIAL NERVE V: Normal corneal responses. CRANIAL NERVE VII: No fascial asymmetry. CRANIAL NERVE VIII: Grossly normal hearing. CRANIAL NERVE IX THROUGH XII: Within normal limits. MOTOR EXAMINATION: Normal muscle tone. Strength is 5/5 in all extremities. No involuntary movement. Deep reflexes 1+ symmetric with downgoing toes on both sides. SENSORY EXAMINATION: Normal to pinprick light touch. Gait is slow and somewhat wobbly. LABORATORY DATA: Lab work on admission included CBC studies with hemoglobin 10.2 and hematocrit 33.9. Sedimentation rate of 30. Coagulation panel was normal. Chemistry panel with BUN of 26, creatinine 1.2. Normal lipid panel. Normal CEA, B12, troponin, and LDH. IMPRESSION: 1. 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 2. Hypertension. 3. History of coronary artery disease, status post coronary artery bypass graft. 4. Degenerative joint disease. DISCUSSION: The patient at this time has no focal neurological findings except slightly abnormal gait, which is chronic. She presents with recurrent stereotypical predominantly sensory abnormality to the left side of the face resembling TIA. Being stereotypical, it appears that symptoms originate in the same motor and sensory area, right hemisphere. This may have some epileptiform component. We will obtain electroencephalogram. We will continue maintaining with aspirin/Plavix. Suggest adding statins and empirically course of Depakote 125 mg b.i.d. for antiepileptic effect. We will follow with you. Thank you for allowing me to see this interesting patient in neurological consultation. Hilario Donna Mohamud DR: Yaz JOB#: [id number] CC:
[2016-11-18] MEDS: Brimonidine 0.2% Opth Sol BOTH EYES SCH (08:14)
[2016-11-18] MEDS: Lisinopril 20mg tab ORAL SCH (08:15)
[2016-11-18] MEDS: Aspirin EC 81mg tab ORAL SCH (08:16)
[2016-11-18] MEDS: Carvedilol 12.5mg tab ORAL SCH (08:16)
[2016-11-18 09:25] LABS: OTHERS PATHOLOGIST COMMENT
[2016-11-18 10:32] LABS: BASOPHILS % (AUTO) 1.2 % (0.0-2.0); LYMPHOCYTES % (AUTO) 28.7 % (20.0-45.0); MEAN CORPUSCULAR HEMOGLOBIN 24.6 PG (27.0-31.0); MEAN CORPUSCULAR HGB CONC 30.5 G/DL (32.0-36.0); MEAN CORPUSCULAR VOLUME 81 FL (80-99); MEAN PLATELET VOLUME 4.9 FL (6.5-10.1); MONOCYTES % (AUTO) 12.5 % (1.0-10.0); NEUTROPHILS % (AUTO) 54.8 % (45.0-75.0); PLATELET COUNT 293 K/UL (150-450); RED BLOOD COUNT 4.08 M/UL (4.20-5.40); RED CELL DISTRIBUTION WIDTH 16.7 % (11.6-14.8); WHITE BLOOD COUNT 4.1 K/UL (4.8-10.8)
[2016-11-18 10:48] LABS: ANION GAP 10 (5-15); CALCIUM 9.3 mg/dL (8.6-10.2); CARBON DIOXIDE 25 mEQ/L (20-30); CHLORIDE 105 mEQ/L (98-107); CREATININE 1.4 mg/dL (0.5-0.9); HEMOLYSIS 3; POTASSIUM 4.2 mEQ/L (3.4-4.9); SODIUM 140 mEQ/L (135-145)
--- NOTE | 2016-11-18 11:44 | Pulmonology Progress Note ---
Assessment/Plan Assessment/Plan ASSESSMENT TIA Hx of CVA HTN CAD Anemia Carotid stenosis PLAN OF CARE MS floor MRI brain no acute intracranial pathology, chronic age related chanegs carotid Duplex with minimal stenosis ECHO with pEF 60-65% and RVSP of 25 MRA head/neck- with Moderate atherosclerotic disease involving portions of the anterior and posterior intracerebral circulation. 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 BP management with BB and DANIE, optimize as needed lipid panel stable neuro follows continue ASA, Plavix, statin Depakote neuro cleared for dc fall precautions PT/OT eval and RX dc plan case discussed and evaluated by supervising physician Subjective Allergies: Coded Allergies: MOXIFLOXACIN (Verified Allergy, Unknown, 11/16/16) Subjective denies dizziness, headache, palpitations no chest pain, no SOB no new weakness Objective Last 24 Hour Vital Signs Date Time Temp Pulse Resp B/P (MAP) Pulse Ox O2 Delivery O2 Flow Rate FiO2 11/18/16 08:27 97.5 73 20 135/58 100 Room Air 11/18/16 08:16 69 135/60 11/18/16 08:15 135/60 11/18/16 04:00 97.9 61 18 143/76 99 Room Air 11/18/16 00:00 97.3 68 18 127/80 Room Air 11/18/16 00:00 96 Room Air 11/17/16 21:27 71 138/66 11/17/16 20:00 97.2 71 18 138/66 99 Room Air 11/17/16 16:00 58 11/17/16 16:00 97.3 58 18 146/67 99 Room Air 11/17/16 12:00 63 11/17/16 12:00 97.8 56 18 130/55 100 Room Air Intake and Output 11/18/16 11/19/16 19:00 07:00 Intake Total 360 ml Balance 360 ml Intake Oral 360 ml # Voids 2 General Appearance: no acute distress, other - awake, alert, responsive elderly AA female in NAD HEENT: normocephalic, atraumatic Respiratory/Chest: lungs clear, no respiratory distress, no accessory muscle use Cardiovascular: normal peripheral pulses, normal rate, regularly irregular, no JVD Abdomen: normal bowel sounds, soft, non tender, non distended Genitourinary: normal external genitalia Extremities: pedal pulses normal, other - +1 edema BLE Neurologic/Psychiatric: alert, oriented x 3, responsive Laboratory Tests 11/18/16 09:50: White Blood Count 4.1L, Red Blood Count 4.08L, Hemoglobin 10.0L, Hematocrit 32.9L, Mean Corpuscular Volume 81, Mean Corpuscular Hemoglobin 24.6L, Mean Corpuscular Hemoglobin Concent 30.5L, Red Cell Distribution Width 16.7H, Platelet Count 293, Mean Platelet Volume 4.9L, Neutrophils (%) (Auto) 54.8, Lymphocytes (%) (Auto) 28.7, Monocytes (%) (Auto) 12.5H, Eosinophils (%) (Auto) 3.0, Basophils (%) (Auto) 1.2, Sodium Level 140, Potassium Level 4.2, Chloride Level 105, Carbon Dioxide Level 25, Anion Gap 10, Blood Urea Nitrogen 30H, Creatinine 1.4H, Estimat Glomerular Filtration Rate , Glucose Level 107H, Calcium Level 9.3 Current Medications Medications (Trade) Dose Ordered Sig/Jose Route PRN Reason Start Time Stop Time Status Last Admin Dose Admin Acetaminophen (Tylenol) 650 mg Q6H PRN ORAL Mild Pain/Temp > 100.5 11/17/16 21:00 12/17/16 20:59 Aspirin (Ecotrin) 81 mg DAILY ORAL 11/18/16 09:00 12/16/16 08:59 11/18/16 08:16 Atorvastatin Calcium (Lipitor) 80 mg BEDTIME ORAL 11/17/16 21:00 12/16/16 20:59 11/17/16 21:27 Brimonidine Tartrate (Alphagan) 1 drop DAILY BOTH EYES 11/18/16 09:00 12/16/16 08:59 11/18/16 08:14 Carvedilol (Coreg) 6.25 mg QHS ORAL 11/17/16 21:00 12/16/16 20:59 11/17/16 21:27 Carvedilol (Coreg) 12.5 mg DAILY ORAL 11/18/16 09:00 12/16/16 08:59 11/18/16 08:16 Clopidogrel Bisulfate (Plavix) 75 mg DAILY ORAL 11/18/16 09:00 12/16/16 08:59 11/18/16 08:15 Ferrous Sulfate (Feosol) 325 mg THREE TIMES A DAY ORAL 11/18/16 09:00 12/17/16 17:59 11/18/16 08:14 Furosemide (Lasix) 20 mg DAILY ORAL 11/18/16 09:00 12/16/16 08:59 11/18/16 08:16 Latanoprost (Xalatan) 1 drop BEDTIME BOTH EYES 11/17/16 21:00 12/16/16 20:59 11/17/16 21:27 Lisinopril (Prinivil) 40 mg DAILY ORAL 11/18/16 09:00 12/16/16 08:59 11/18/16 08:15 Ondansetron HCl (Zofran) 4 mg Q6H PRN IVP Nausea & Vomiting 11/17/16 21:00 12/17/16 20:59 Pantoprazole (Protonix) 40 mg ACBREAKFAST ORAL 11/18/16 06:30 12/16/16 06:29 11/18/16 06:02 Dago BraxtonDeb del cid NP Nov 18, 2016 11:44
--- NOTE | 2016-11-18 11:54 | GI Initial Consult Note ---
History of Present Illness General Date patient seen: Nov 18, 2016 Time patient seen: 11:00 Referring physician: ARELIS CARRASQUILLO Reason for Consultation: ANEMIA Present Illness HPI The patient has history of transient ischemic attack in July 2016. This was treated at [facility]. The patient has no residual effects of the TIA at that time. The patient presented to [facility] Emergency Room on 11/15/2016. The patient complained of several hour history of "tugging" in her left face. The patient states her face was not symmetrical in the mirror. The patient was transferred to [facility] for insurance purposes. The patient was admitted for left facial weakness to rule out transient ischemic attack. GI Consult. HPI as noted above. GI consulted for anemia. Pt seen on floor, awake A&Ox4 NAD with no active s/sx of N/V/D. Denies any abdominal pain. She presents today with iron deficiency anemia, currently taking FeSO4 which is causing her to have constipation. The patient states she's had a colonoscopy and small bowel capsule endoscopy x 2 last year with unremarkable results. Occult blood stool is negative and the patient is currently on Plavix. Home Meds Reported Medications Vitamin D (Vitamin D3) 400 Unit Tablet, 1000 UNITS ORAL DAILY, TAB 11/16/16 Lansoprazole* (PREVACID*) 30 Mg Capsule.dr, 30 MG ORAL DAILY, CAP 11/16/16 Clopidogrel Bisulfate* (PLAVIX*) 75 Mg Tablet, 75 MG ORAL DAILY, TAB 11/16/16 Lisinopril* (LISINOPRIL*) 40 Mg Tablet, 40 MG ORAL DAILY, TAB 11/16/16 Carvedilol* (CARVEDILOL*) 6.25 Mg Tablet, 6.25 MG ORAL, TAB 11/16/16 Carvedilol (Coreg) 12.5 Mg Tablet, 12.5 MG ORAL, TAB 11/16/16 Furosemide* (LASIX*) 20 Mg Tablet, 20 MG ORAL DAILY, TAB 11/16/16 Latanoprost* (XALATAN*) 2.5 Ml Drops, 1 DROP BOTH EYES BEDTIME, ML 0 Refills 11/16/16 Brimonidine Tartrate* (ALPHAGAN*) 5 Ml Drops, 1 DROP BOTH EYES DAILY, ML 11/16/16 Aspirin* (ASPIR 81*) 81 Mg Tablet.dr, 81 MG ORAL DAILY, TAB 11/16/16 Med list reviewed/reconciled: Yes Allergies: Coded Allergies: MOXIFLOXACIN (Verified Allergy, Unknown, 11/16/16) Patient History History Provided By: Patient, Medical Record [facility] Narrative PAST MEDICAL HISTORY: Significant for: 1. Transient ischemic attack in July 2016 as above. 2. Hypertension. 3. Coronary artery disease, status post myocardial infarction at age 51. PAST SURGICAL HISTORY: Significant for coronary artery bypass graft in 1999. Social History: Denies: smoking, alcohol use, drug use, other Review of Systems All Other Systems: negative except mentioned in HPI Physical Exam Vital Signs Date Time Temp Pulse Resp B/P (MAP) Pulse Ox O2 Delivery O2 Flow Rate FiO2 11/15/16 23:15 78 11/16/16 00:00 97.5 20 172/76 100 Room Air Sp02 EP Interpretation: reviewed Labs Laboratory Tests Test 11/18/16 09:50 White Blood Count 4.1 K/UL (4.8-10.8) L Red Blood Count 4.08 M/UL (4.20-5.40) L Hemoglobin 10.0 G/DL (12.0-16.0) L Hematocrit 32.9 % (37.0-47.0) L Mean Corpuscular Volume 81 FL (80-99) Mean Corpuscular Hemoglobin 24.6 PG (27.0-31.0) L Mean Corpuscular Hemoglobin Concent 30.5 G/DL (32.0-36.0) L Red Cell Distribution Width 16.7 % (11.6-14.8) H Platelet Count 293 K/UL (150-450) Mean Platelet Volume 4.9 FL (6.5-10.1) L Neutrophils (%) (Auto) 54.8 % (45.0-75.0) Lymphocytes (%) (Auto) 28.7 % (20.0-45.0) Monocytes (%) (Auto) 12.5 % (1.0-10.0) H Eosinophils (%) (Auto) 3.0 % (0.0-3.0) Basophils (%) (Auto) 1.2 % (0.0-2.0) Sodium Level 140 mEQ/L (135-145) Potassium Level 4.2 mEQ/L (3.4-4.9) Chloride Level 105 mEQ/L (98-107) Carbon Dioxide Level 25 mEQ/L (20-30) Anion Gap 10 (5-15) Blood Urea Nitrogen 30 mg/dL (7-23) H Creatinine 1.4 mg/dL (0.5-0.9) H Estimat Glomerular Filtration Rate mL/min (>60) Glucose Level 107 mg/dL (74-106) H Calcium Level 9.3 mg/dL (8.6-10.2) General Appearance: well appearing, no apparent distress, alert Head: normocephalic EENT: PERRL/EOMI, normal ENT inspection Neck: normal inspection, supple Respiratory: normal breath sounds, no respiratory distress, no retraction Cardiovascular: normal rate Gastrointestinal: normal inspection, non tender, soft, normal bowel sounds Rectal: deferred Musculoskeletal: back normal Neurologic: normal inspection, alert, oriented x3, responsive Psychiatric: normal inspection, judgement/insight normal, memory normal Skin: normal inspection, normal color, no rash, warm/dry, palpation normal Lymphatic: normal inspection, no adenopathy Current Medications Current Medications Medications (Trade) Dose Ordered Sig/Jose Route PRN Reason Start Time Stop Time Status Last Admin Dose Admin Acetaminophen (Tylenol) 650 mg Q6H PRN ORAL Mild Pain/Temp > 100.5 11/17/16 21:00 12/17/16 20:59 Aspirin (Ecotrin) 81 mg DAILY ORAL 11/18/16 09:00 12/16/16 08:59 11/18/16 08:16 Atorvastatin Calcium (Lipitor) 80 mg BEDTIME ORAL 11/17/16 21:00 12/16/16 20:59 11/17/16 21:27 Brimonidine Tartrate (Alphagan) 1 drop DAILY BOTH EYES 11/18/16 09:00 12/16/16 08:59 11/18/16 08:14 Carvedilol (Coreg) 6.25 mg QHS ORAL 11/17/16 21:00 12/16/16 20:59 11/17/16 21:27 Carvedilol (Coreg) 12.5 mg DAILY ORAL 11/18/16 09:00 12/16/16 08:59 11/18/16 08:16 Clopidogrel Bisulfate (Plavix) 75 mg DAILY ORAL 11/18/16 09:00 12/16/16 08:59 11/18/16 08:15 Ferrous Sulfate (Feosol) 325 mg THREE TIMES A DAY ORAL 11/18/16 09:00 12/17/16 17:59 11/18/16 08:14 Furosemide (Lasix) 20 mg DAILY ORAL 11/18/16 09:00 12/16/16 08:59 11/18/16 08:16 Latanoprost (Xalatan) 1 drop BEDTIME BOTH EYES 11/17/16 21:00 12/16/16 20:59 11/17/16 21:27 Lisinopril (Prinivil) 40 mg DAILY ORAL 11/18/16 09:00 12/16/16 08:59 11/18/16 08:15 Ondansetron HCl (Zofran) 4 mg Q6H PRN IVP Nausea & Vomiting 11/17/16 21:00 12/17/16 20:59 Pantoprazole (Protonix) 40 mg ACBREAKFAST ORAL 11/18/16 06:30 12/16/16 06:29 11/18/16 06:02 GI: Plan Problems: (1) Iron deficiency anemia Plan s/p SB capsule endoscopy last year per patient with unremarkable results OB stool negative supportive care / conservative management iron deficiency >> cont FeSO4, will add venofer x 1 bowel regime >> colace + miralax ATC dietary consult for education ppi cardiac diet fu labs pt on Plavix (note this must be dc min 48 hours prior any GI procedures) Discussed with Dr. Holguin. Thank you for referring this patient, we will follow. Brit Morin N.P. Nov 18, 2016 11:54
--- NOTE | 2016-11-18 11:56 | Neurology Progress Note ---
Interim History Interim History ROS Limited/Unobtainable: No Complaints: ok Events: no tia sx Objective Physical Exam Last Vital Signs Date Time Temp Pulse Resp B/P (MAP) Pulse Ox O2 Delivery O2 Flow Rate FiO2 11/18/16 08:27 97.5 73 20 135/58 100 Room Air Laboratory Tests Test 11/18/16 09:50 White Blood Count 4.1 K/UL (4.8-10.8) L Red Blood Count 4.08 M/UL (4.20-5.40) L Hemoglobin 10.0 G/DL (12.0-16.0) L Hematocrit 32.9 % (37.0-47.0) L Mean Corpuscular Volume 81 FL (80-99) Mean Corpuscular Hemoglobin 24.6 PG (27.0-31.0) L Mean Corpuscular Hemoglobin Concent 30.5 G/DL (32.0-36.0) L Red Cell Distribution Width 16.7 % (11.6-14.8) H Platelet Count 293 K/UL (150-450) Mean Platelet Volume 4.9 FL (6.5-10.1) L Neutrophils (%) (Auto) 54.8 % (45.0-75.0) Lymphocytes (%) (Auto) 28.7 % (20.0-45.0) Monocytes (%) (Auto) 12.5 % (1.0-10.0) H Eosinophils (%) (Auto) 3.0 % (0.0-3.0) Basophils (%) (Auto) 1.2 % (0.0-2.0) Sodium Level 140 mEQ/L (135-145) Potassium Level 4.2 mEQ/L (3.4-4.9) Chloride Level 105 mEQ/L (98-107) Carbon Dioxide Level 25 mEQ/L (20-30) Anion Gap 10 (5-15) Blood Urea Nitrogen 30 mg/dL (7-23) H Creatinine 1.4 mg/dL (0.5-0.9) H Estimat Glomerular Filtration Rate mL/min (>60) Glucose Level 107 mg/dL (74-106) H Calcium Level 9.3 mg/dL (8.6-10.2) General: well developed, no acute distress Head: atraumatic Neck: no rigidity Neurologic Exam Mental Status: awake, alert, oriented x4, normal cognition, good mathematical skills, normal recent memory, normal remote memory, preserved visuospatial function Speech: normal speech, no dysarthia Language: normal language, no aphasia Cranial Nerve II: fundus normal, visual church, no papilledema Cranial Nerves III, IV, : PERRLA, EOMI, pupils Cranial Nerve V: normal facial sensations, temporales function normal, masseters function normal, pterygoids function normal Cranial Nerve VII: no facial asymmetry, normal facial expressions Cranial Nerve VIII: normal hearing, no nystagmus Cranial Nerve IX: normal palate elevation, gag response Cranial Nerve X: no voice hoarseness Cranial Nerve XI: SCM symmetric, trapezii function normal Cranial Nerve XII: tongue midline, no tongue atrophy/fasciculations Motor System: normal muscle tone, strength 5/5, no involuntary movement, no muscle wasting Sensory: normal pinprick, normal light touch, normal position sense, normal graphesthesia Coordination: normal finger to nose bilaterally, normal heel to cali bilaterally, negative Romberg test Deep Tendon Reflexes: 2+ bicep (L), 2+ bicep (R), 2+ tricep (L), 2+ tricep (R) , 2+ brachioradialis (L), 2+ brachioradialis (R), 2+ knee (L), 2+ knee (R), 2+ ankle (L), 2+ ankle (R) Stance: normal Gait: stable, normal regular, heel + toe gait Impression/Recommendations Problems: (1) Transient ischemic attack (TIA) Status: stable, not improved Recommendations # [id number] asa/plavix/statins depakote 250mg bid neuro stable ok d/c OSVALDO LE Nov 18, 2016 11:56
--- NOTE | 2016-11-18 14:00 | Diagnostic Imaging Report ---
Indication: Altered mental status Technique: 3-D [id number] of the brain Comparison: None Findings: There is an apparent stenosis probably high-grade involving the distal aspect of the right ICA at the junction of the cavernous and supraclinoid portions. The spermatic narrowing is also probably present on the left side in the same location. There is slight beading and mural irregularity involving portions of the M1 and M2 segments of both middle cerebral arteries. Similar findings involving the anterior cerebral arteries. Note is made of a focal moderate to high-grade stenosis at the distal aspect of the A1 segment of the right FOZIA. Both posterior cerebral artery branches also demonstrate moderate atherosclerotic disease with a beating and moderate multisegmental stenoses, particularly the left ALTERATIONS SUPERVISOR. There is no evidence of formation, occlusion or aneurysm. Impression: Moderate atherosclerotic disease involving portions of the anterior and posterior intracerebral circulation. Moderate to high-grade stenoses noted within the right ICA, distal right A1 segment and left ALTERATIONS SUPERVISOR.
--- NOTE | 2016-11-18 18:37 | Internal Med Progress Note ---
Subjective Date of Service: Nov 18, 2016 Physician Name Ethan Nam Attending Physician Nicholas Simmons MD Current Medications Medications (Trade) Dose Ordered Sig/Jose Route PRN Reason Start Time Stop Time Status Last Admin Dose Admin Acetaminophen (Tylenol) 650 mg Q6H PRN ORAL Mild Pain/Temp > 100.5 11/17/16 21:00 12/17/16 20:59 Aspirin (Ecotrin) 81 mg DAILY ORAL 11/18/16 09:00 12/16/16 08:59 11/18/16 08:16 Atorvastatin Calcium (Lipitor) 80 mg BEDTIME ORAL 11/17/16 21:00 12/16/16 20:59 11/17/16 21:27 Brimonidine Tartrate (Alphagan) 1 drop DAILY BOTH EYES 11/18/16 09:00 12/16/16 08:59 11/18/16 08:14 Carvedilol (Coreg) 6.25 mg QHS ORAL 11/17/16 21:00 12/16/16 20:59 11/17/16 21:27 Carvedilol (Coreg) 12.5 mg DAILY ORAL 11/18/16 09:00 12/16/16 08:59 11/18/16 08:16 Clopidogrel Bisulfate (Plavix) 75 mg DAILY ORAL 11/18/16 09:00 12/16/16 08:59 11/18/16 08:15 Ferrous Sulfate (Feosol) 325 mg THREE TIMES A DAY ORAL 11/18/16 09:00 12/17/16 17:59 11/18/16 17:13 Furosemide (Lasix) 20 mg DAILY ORAL 11/18/16 09:00 12/16/16 08:59 11/18/16 08:16 Latanoprost (Xalatan) 1 drop BEDTIME BOTH EYES 11/17/16 21:00 12/16/16 20:59 11/17/16 21:27 Lisinopril (Prinivil) 40 mg DAILY ORAL 11/18/16 09:00 12/16/16 08:59 11/18/16 08:15 Ondansetron HCl (Zofran) 4 mg Q6H PRN IVP Nausea & Vomiting 11/17/16 21:00 12/17/16 20:59 Pantoprazole (Protonix) 40 mg ACBREAKFAST ORAL 11/18/16 06:30 12/16/16 06:29 11/18/16 06:02 Allergies: Coded Allergies: MOXIFLOXACIN (Verified Allergy, Unknown, 11/16/16) ROS Limited/Unobtainable: No Constitutional: Reports: no symptoms HEENT: Reports: no symptoms Cardiovascular: Reports: no symptoms Respiratory: Reports: no symptoms Gastrointestinal/Abdominal: Reports: no symptoms Genitourinary: Reports: no symptoms Neurologic/Psychiatric: Reports: no symptoms Subjective 86 YO F admitted with left facial weakness. Cover for Int Joseph-Dr Simmons. Objective Last Vital Signs Date Time Temp Pulse Resp B/P (MAP) Pulse Ox O2 Delivery O2 Flow Rate FiO2 11/18/16 16:10 97.2 69 20 122/58 98 Room Air Laboratory Tests Test 11/18/16 09:50 11/18/16 13:45 White Blood Count 4.1 K/UL (4.8-10.8) L Red Blood Count 4.08 M/UL (4.20-5.40) L Hemoglobin 10.0 G/DL (12.0-16.0) L Hematocrit 32.9 % (37.0-47.0) L Mean Corpuscular Volume 81 FL (80-99) Mean Corpuscular Hemoglobin 24.6 PG (27.0-31.0) L Mean Corpuscular Hemoglobin Concent 30.5 G/DL (32.0-36.0) L Red Cell Distribution Width 16.7 % (11.6-14.8) H Platelet Count 293 K/UL (150-450) Mean Platelet Volume 4.9 FL (6.5-10.1) L Neutrophils (%) (Auto) 54.8 % (45.0-75.0) Lymphocytes (%) (Auto) 28.7 % (20.0-45.0) Monocytes (%) (Auto) 12.5 % (1.0-10.0) H Eosinophils (%) (Auto) 3.0 % (0.0-3.0) Basophils (%) (Auto) 1.2 % (0.0-2.0) Sodium Level 140 mEQ/L (135-145) Potassium Level 4.2 mEQ/L (3.4-4.9) Chloride Level 105 mEQ/L (98-107) Carbon Dioxide Level 25 mEQ/L (20-30) Anion Gap 10 (5-15) Blood Urea Nitrogen 30 mg/dL (7-23) H Creatinine 1.4 mg/dL (0.5-0.9) H Estimat Glomerular Filtration Rate mL/min (>60) Glucose Level 107 mg/dL (74-106) H Calcium Level 9.3 mg/dL (8.6-10.2) Stool Occult Blood Pending Intake and Output 11/18/16 11/19/16 19:00 07:00 Intake Total 1080 ml Balance 1080 ml Intake Oral 1080 ml # Voids 6 # Bowel Movements 1 Objective General Appearance: WD/WN, no apparent distress, alert EENT: PERRL/EOMI, normal ENT inspection Neck: non-tender, normal alignment, supple, normal inspection Cardiovascular: normal peripheral pulses, normal rate, regular rhythm, no gallop/murmur, no JVD Respiratory/Chest: chest wall non-tender, lungs clear, normal breath sounds, no respiratory distress, no accessory muscle use Abdomen: normal bowel sounds, non tender, soft, no organomegaly, no mass Extremities: normal range of motion 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 ?TIA? (3) Transient ischemic attack (TIA) Assessment & Plan: MRI brain and carotid duplex WNL. See neurology note. (4) HTN (hypertension) Assessment & Plan: Continue coreg and lisinopril. Status: stable Assessment/Plan Discharge planning: home with caregiver NAMETHAN Nov 18, 2016 18:36
[2016-11-18] MEDS: Atorvastatin 80mg tab ORAL SCH (20:52)
[2016-11-18] MEDS: Carvedilol 6.25mg Tab ORAL SCH (21:40)
--- NOTE | 2016-11-18 21:45 | Electroencephalogram ---
DATE OF PROCEDURE: 11/17/2016 ELECTROENCEPHALOGRAPHY REPORT REQUESTING PHYSICIAN: Nicholas Simmons M.D. HISTORY: This is an 86 years old female with a history of transient facial droop, hypertension, coronary artery disease, and history of stroke. TECHNIQUE: EEG was done using 18 electrodes placed scalp to scalp, scalp to ear montages according to 10/20 International System. During the recording, the patient was described as being awake or drowsy, but fairly cooperative normal mentality. Current treatment included Lasix and Lipitor. Most wakeful portions of recording, background consists of low to medium voltage, 6 to 7 cycles per second activities with frequent EMG artifacts. No significant amplitude asymmetry. No spike or wave activity noted. Photic stimulation from 3 to 32 hertz was done, result no significant changes. With progression of generalized slowing in a 6-7 cycles range, attenuation of background was noted corresponding to sleep stages. There was no clear evidence of spike and wave activities. No mkxy-[id number] asymmetry. IMPRESSION: Mildly abnormal EEG and presence of mild diffuse slowing. COMMENT: Above abnormality indicates a mild global dysfunction, which may correspond to toxic metabolic derangement or diffuse structural lesion. Absence of paroxysmal activities does not rule out seizure disorder. Hilario Mohamud M.D. DR: ANITRA JOB#: [id number] CC:
[2016-11-19 04:00] VITALS: BP 157/70
--- NOTE | 2016-11-19 07:25 | Pulmonology Progress Note ---
Assessment/Plan Assessment/Plan ASSESSMENT TIA Hx of CVA HTN CAD Anemia of chronic disease likely chronic renal insufficiency Carotid stenosis PLAN OF CARE MS floor MRI brain no acute intracranial pathology, chronic age related chanegs carotid Duplex with minimal stenosis ECHO with pEF 60-65% and RVSP of 25 MRA head/neck- with Moderate atherosclerotic disease involving portions of the anterior and posterior intracerebral circulation. Moderate to high-grade stenoses noted within the right ICA, distal right A1 segment and left PROTOTYPE CARPENTER. BP management with BB and DANIE, optimize as needed lipid panel stable neuro follows continue ASA, Plavix, statin Depakote neuro cleared for dc fall precautions PT/OT eval and RX monitor HH, at baseline, w/up c/w with anemia of chronic disease creat remains slightly elevated w/up as outpatient likely chronic renal insufficiency dc plan per PMD case discussed and evaluated by supervising physician Subjective Allergies: Coded Allergies: MOXIFLOXACIN (Verified Allergy, Unknown, 11/16/16) Subjective denies dizziness, headache, palpitations no chest pain, no SOB no new weakness ambulates Objective Last 24 Hour Vital Signs Date Time Temp Pulse Resp B/P (MAP) Pulse Ox O2 Delivery O2 Flow Rate FiO2 11/19/16 04:00 97.0 60 21 157/70 98 Room Air 11/18/16 23:55 97.0 59 19 140/68 98 Room Air 11/18/16 21:40 95 147/79 11/18/16 20:32 97.0 98 21 144/78 98 Room Air 11/18/16 16:10 97.2 69 20 122/58 98 Room Air 11/18/16 12:10 98.0 70 20 130/66 98 Room Air 11/18/16 08:27 97.5 73 20 135/58 100 Room Air 11/18/16 08:16 69 135/60 11/18/16 08:15 135/60 Objective General Appearance: no acute distress, other - awake, alert, responsive elderly AA female in NAD HEENT: normocephalic, atraumatic Respiratory/Chest: lungs clear, no respiratory distress, no accessory muscle use Cardiovascular: normal peripheral pulses, normal rate, regularly irregular, no JVD Abdomen: normal bowel sounds, soft, non tender, non distended Genitourinary: normal external genitalia Extremities: pedal pulses normal, other - +1 edema BLE Neurologic/Psychiatric: alert, oriented x 3, responsive Laboratory Tests 11/18/16 09:50: White Blood Count 4.1L, Red Blood Count 4.08L, Hemoglobin 10.0L, Hematocrit 32.9L, Mean Corpuscular Volume 81, Mean Corpuscular Hemoglobin 24.6L, Mean Corpuscular Hemoglobin Concent 30.5L, Red Cell Distribution Width 16.7H, Platelet Count 293, Mean Platelet Volume 4.9L, Neutrophils (%) (Auto) 54.8, Lymphocytes (%) (Auto) 28.7, Monocytes (%) (Auto) 12.5H, Eosinophils (%) (Auto) 3.0, Basophils (%) (Auto) 1.2, Sodium Level 140, Potassium Level 4.2, Chloride Level 105, Carbon Dioxide Level 25, Anion Gap 10, Blood Urea Nitrogen 30H, Creatinine 1.4H, Estimat Glomerular Filtration Rate , Glucose Level 107H, Calcium Level 9.3 11/18/16 13:45: Stool Occult Blood [Pending] 11/19/16 06:20: White Blood Count [Pending], Red Blood Count [Pending], Hemoglobin [Pending], Hematocrit [Pending], Mean Corpuscular Volume [Pending], Mean Corpuscular Hemoglobin [Pending], Mean Corpuscular Hemoglobin Concent [Pending], Red Cell Distribution Width [Pending], Platelet Count [Pending], Mean Platelet Volume [ Pending], Neutrophils (%) (Auto) [Pending], Lymphocytes (%) (Auto) [Pending], Monocytes (%) (Auto) [Pending], Eosinophils (%) (Auto) [Pending], Basophils (%) (Auto) [Pending], Sodium Level [Pending], Potassium Level [Pending], Chloride Level [Pending], Carbon Dioxide Level [Pending], Blood Urea Nitrogen [Pending], Creatinine [Pending], Estimat Glomerular Filtration Rate [Pending], Glucose Level [Pending], Calcium Level [Pending] Current Medications Medications (Trade) Dose Ordered Sig/Jose Route PRN Reason Start Time Stop Time Status Last Admin Dose Admin Acetaminophen (Tylenol) 650 mg Q6H PRN ORAL Mild Pain/Temp > 100.5 11/17/16 21:00 12/17/16 20:59 Aspirin (Ecotrin) 81 mg DAILY ORAL 11/18/16 09:00 12/16/16 08:59 11/18/16 08:16 Atorvastatin Calcium (Lipitor) 80 mg BEDTIME ORAL 11/17/16 21:00 12/16/16 20:59 11/18/16 20:52 Brimonidine Tartrate (Alphagan) 1 drop DAILY BOTH EYES 11/18/16 09:00 12/16/16 08:59 11/18/16 08:14 Carvedilol (Coreg) 6.25 mg QHS ORAL 11/17/16 21:00 12/16/16 20:59 11/18/16 21:40 Carvedilol (Coreg) 12.5 mg DAILY ORAL 11/18/16 09:00 12/16/16 08:59 11/18/16 08:16 Clopidogrel Bisulfate (Plavix) 75 mg DAILY ORAL 11/18/16 09:00 12/16/16 08:59 11/18/16 08:15 Ferrous Sulfate (Feosol) 325 mg THREE TIMES A DAY ORAL 11/18/16 09:00 12/17/16 17:59 11/18/16 17:13 Furosemide (Lasix) 20 mg DAILY ORAL 11/18/16 09:00 12/16/16 08:59 11/18/16 08:16 Latanoprost (Xalatan) 1 drop BEDTIME BOTH EYES 11/17/16 21:00 12/16/16 20:59 11/18/16 20:51 Lisinopril (Prinivil) 40 mg DAILY ORAL 11/18/16 09:00 12/16/16 08:59 11/18/16 08:15 Ondansetron HCl (Zofran) 4 mg Q6H PRN IVP Nausea & Vomiting 11/17/16 21:00 12/17/16 20:59 Pantoprazole (Protonix) 40 mg ACBREAKFAST ORAL 11/18/16 06:30 12/16/16 06:29 11/19/16 05:59 Dago (Spring)Deb NP Nov 19, 2016 07:25
[2016-11-19 07:51] LABS: ANION GAP 11 (5-15); CALCIUM 9.8 mg/dL (8.6-10.2); CARBON DIOXIDE 26 mEQ/L (20-30); CHLORIDE 103 mEQ/L (98-107); CREATININE 1.4 mg/dL (0.5-0.9); HEMOLYSIS 5; POTASSIUM 4.2 mEQ/L (3.4-4.9); SODIUM 140 mEQ/L (135-145)
[2016-11-19 07:53] LABS: EOSINOPHILS % (AUTO) 3.1 % (0.0-3.0); MEAN CORPUSCULAR HEMOGLOBIN 25.9 PG (27.0-31.0); MEAN CORPUSCULAR HGB CONC 32.3 G/DL (32.0-36.0); MEAN CORPUSCULAR VOLUME 80 FL (80-99); MEAN PLATELET VOLUME 4.8 FL (6.5-10.1); MONOCYTES % (AUTO) 12.7 % (1.0-10.0); NEUTROPHILS % (AUTO) 38.2 % (45.0-75.0); PLATELET COUNT 290 K/UL (150-450); RED BLOOD COUNT 4.01 M/UL (4.20-5.40); RED CELL DISTRIBUTION WIDTH 16.7 % (11.6-14.8); WHITE BLOOD COUNT 4.7 K/UL (4.8-10.8)
[2016-11-19 08:00] VITALS: BP 154/84
[2016-11-19] MEDS: Brimonidine 0.2% Opth Sol BOTH EYES SCH (08:35)
[2016-11-19] MEDS: Aspirin EC 81mg tab ORAL SCH (08:36)
[2016-11-19] MEDS: Carvedilol 12.5mg tab ORAL SCH (08:36)
[2016-11-19] MEDS: Lisinopril 20mg tab ORAL SCH (08:37)
[2016-11-19 11:58] VITALS: BP 128/67
[2016-11-19 16:00] VITALS: BP 142/66
--- NOTE | 2016-11-19 17:07 | General Progress Note ---
Assessment/Plan Assessment/Plan Assessment - Iron deficiency anemia - negative prior GI w/u - OB (-) x 2 Recommendations - monitor CBC - conservative therapy - no plans for endscopy at this time Subjective Allergies: Coded Allergies: MOXIFLOXACIN (Verified Allergy, Unknown, 11/16/16) Subjective feels OK no new c/o ate well no abd pain on PO Fe Objective Last 24 Hour Vital Signs Date Time Temp Pulse Resp B/P (MAP) Pulse Ox O2 Delivery O2 Flow Rate FiO2 11/19/16 16:00 97.7 56 18 142/66 99 Room Air 11/19/16 11:58 97.7 62 18 128/67 98 Room Air 11/19/16 08:37 154/84 11/19/16 08:36 68 154/84 11/19/16 08:00 96.8 68 18 154/84 99 Room Air 11/19/16 04:00 97.0 60 21 157/70 98 Room Air 11/18/16 23:55 97.0 59 19 140/68 98 Room Air 11/18/16 21:40 95 147/79 11/18/16 20:32 97.0 98 21 144/78 98 Room Air Intake and Output 11/19/16 11/20/16 19:00 07:00 Intake Total 480 ml Balance 480 ml Intake Oral 480 ml # Voids 2 Laboratory Tests 11/19/16 06:20: White Blood Count 4.7L, Red Blood Count 4.01L, Hemoglobin 10.4L, Hematocrit 32.2L, Mean Corpuscular Volume 80, Mean Corpuscular Hemoglobin 25.9L, Mean Corpuscular Hemoglobin Concent 32.3, Red Cell Distribution Width 16.7H, Platelet Count 290, Mean Platelet Volume 4.8L, Neutrophils (%) (Auto) 38.2L, Lymphocytes (%) (Auto) 45.0, Monocytes (%) (Auto) 12.7H, Eosinophils (%) (Auto) 3.1H, Basophils (%) (Auto) 1.0, Sodium Level 140, Potassium Level 4.2, Chloride Level 103, Carbon Dioxide Level 26, Anion Gap 11, Blood Urea Nitrogen 30H, Creatinine 1.4H, Estimat Glomerular Filtration Rate , Glucose Level 92, Calcium Level 9.8 Height (Feet): 5 Height (Inches): 3.00 Weight (Pounds): 188 Objective WDWN NCAT supple CTA RRR Soft ND NT (+) b/l edema non focal ROSE CM Nov 19, 2016 17:07
--- NOTE | 2016-11-19 17:36 | Internal Med Progress Note ---
Subjective Date of Service: Nov 19, 2016 Physician Name Ethan Lea Attending Physician Nicholas Simmons MD Current Medications Medications (Trade) Dose Ordered Sig/Jose Route PRN Reason Start Time Stop Time Status Last Admin Dose Admin Acetaminophen (Tylenol) 650 mg Q6H PRN ORAL Mild Pain/Temp > 100.5 11/17/16 21:00 12/17/16 20:59 Aspirin (Ecotrin) 81 mg DAILY ORAL 11/18/16 09:00 12/16/16 08:59 11/19/16 08:36 Atorvastatin Calcium (Lipitor) 80 mg BEDTIME ORAL 11/17/16 21:00 12/16/16 20:59 11/18/16 20:52 Brimonidine Tartrate (Alphagan) 1 drop DAILY BOTH EYES 11/18/16 09:00 12/16/16 08:59 11/19/16 08:35 Carvedilol (Coreg) 6.25 mg QHS ORAL 11/17/16 21:00 12/16/16 20:59 11/18/16 21:40 Carvedilol (Coreg) 12.5 mg DAILY ORAL 11/18/16 09:00 12/16/16 08:59 11/19/16 08:36 Clopidogrel Bisulfate (Plavix) 75 mg DAILY ORAL 11/18/16 09:00 12/16/16 08:59 11/19/16 08:37 Ferrous Sulfate (Feosol) 325 mg THREE TIMES A DAY ORAL 11/18/16 09:00 12/17/16 17:59 11/19/16 12:50 Furosemide (Lasix) 20 mg DAILY ORAL 11/18/16 09:00 12/16/16 08:59 11/19/16 08:37 Latanoprost (Xalatan) 1 drop BEDTIME BOTH EYES 11/17/16 21:00 12/16/16 20:59 11/18/16 20:51 Lisinopril (Prinivil) 40 mg DAILY ORAL 11/18/16 09:00 12/16/16 08:59 11/19/16 08:37 Ondansetron HCl (Zofran) 4 mg Q6H PRN IVP Nausea & Vomiting 11/17/16 21:00 12/17/16 20:59 Pantoprazole (Protonix) 40 mg ACBREAKFAST ORAL 11/18/16 06:30 12/16/16 06:29 11/19/16 05:59 Allergies: Coded Allergies: MOXIFLOXACIN (Verified Allergy, Unknown, 11/16/16) ROS Limited/Unobtainable: No Constitutional: Reports: no symptoms HEENT: Reports: no symptoms Cardiovascular: Reports: no symptoms Respiratory: Reports: no symptoms Gastrointestinal/Abdominal: Reports: no symptoms Genitourinary: Reports: no symptoms Neurologic/Psychiatric: Reports: no symptoms Subjective 86 YO F admitted with left facial weakness. Cover for Int Med-Dr Simmons. Objective Last Vital Signs Date Time Temp Pulse Resp B/P (MAP) Pulse Ox O2 Delivery O2 Flow Rate FiO2 11/19/16 16:00 97.7 56 18 142/66 99 Room Air Laboratory Tests Test 11/19/16 06:20 White Blood Count 4.7 K/UL (4.8-10.8) L Red Blood Count 4.01 M/UL (4.20-5.40) L Hemoglobin 10.4 G/DL (12.0-16.0) L Hematocrit 32.2 % (37.0-47.0) L Mean Corpuscular Volume 80 FL (80-99) Mean Corpuscular Hemoglobin 25.9 PG (27.0-31.0) L Mean Corpuscular Hemoglobin Concent 32.3 G/DL (32.0-36.0) Red Cell Distribution Width 16.7 % (11.6-14.8) H Platelet Count 290 K/UL (150-450) Mean Platelet Volume 4.8 FL (6.5-10.1) L Neutrophils (%) (Auto) 38.2 % (45.0-75.0) L Lymphocytes (%) (Auto) 45.0 % (20.0-45.0) Monocytes (%) (Auto) 12.7 % (1.0-10.0) H Eosinophils (%) (Auto) 3.1 % (0.0-3.0) H Basophils (%) (Auto) 1.0 % (0.0-2.0) Sodium Level 140 mEQ/L (135-145) Potassium Level 4.2 mEQ/L (3.4-4.9) Chloride Level 103 mEQ/L (98-107) Carbon Dioxide Level 26 mEQ/L (20-30) Anion Gap 11 (5-15) Blood Urea Nitrogen 30 mg/dL (7-23) H Creatinine 1.4 mg/dL (0.5-0.9) H Estimat Glomerular Filtration Rate mL/min (>60) Glucose Level 92 mg/dL (74-106) Calcium Level 9.8 mg/dL (8.6-10.2) Intake and Output 11/19/16 11/20/16 19:00 07:00 Intake Total 480 ml Balance 480 ml Intake Oral 480 ml # Voids 2 Objective General Appearance: WD/WN, no apparent distress, alert EENT: PERRL/EOMI, normal ENT inspection Neck: non-tender, normal alignment, supple, normal inspection Cardiovascular: normal peripheral pulses, normal rate, regular rhythm, no gallop/murmur, no JVD Respiratory/Chest: chest wall non-tender, lungs clear, normal breath sounds, no respiratory distress, no accessory muscle use Abdomen: normal bowel sounds, non tender, soft, no organomegaly, no mass Extremities: normal range of motion 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 ?TIA? (3) Transient ischemic attack (TIA) Assessment & Plan: MRI brain and carotid duplex WNL. See neurology note. (4) HTN (hypertension) Assessment & Plan: Continue coreg and lisinopril. Assessment/Plan Discharge planning: home with caregiver CYRILETHAN Nov 19, 2016 17:36
[2016-11-19 20:00] VITALS: BP 132/58
[2016-11-19] MEDS: Atorvastatin 80mg tab ORAL SCH (21:02)
[2016-11-19] MEDS: Carvedilol 6.25mg Tab ORAL SCH (21:03)
[2016-11-20] VITALS: BP 149/60
[2016-11-20 04:00] VITALS: BP 143/79
[2016-11-20 07:05] LABS: BASOPHILS % (AUTO) 1.3 % (0.0-2.0); EOSINOPHILS % (AUTO) 3.4 % (0.0-3.0); LYMPHOCYTES % (AUTO) 27.6 % (20.0-45.0); MEAN CORPUSCULAR HEMOGLOBIN 24.6 PG (27.0-31.0); MEAN CORPUSCULAR HGB CONC 30.9 G/DL (32.0-36.0); MEAN CORPUSCULAR VOLUME 80 FL (80-99); MEAN PLATELET VOLUME 4.8 FL (6.5-10.1); MONOCYTES % (AUTO) 12.2 % (1.0-10.0); NEUTROPHILS % (AUTO) 55.5 % (45.0-75.0); PLATELET COUNT 318 K/UL (150-450); RED BLOOD COUNT 4.27 M/UL (4.20-5.40); RED CELL DISTRIBUTION WIDTH 16.7 % (11.6-14.8); WHITE BLOOD COUNT 4.9 K/UL (4.8-10.8)
[2016-11-20 07:18] LABS: ANION GAP 12 (5-15); CALCIUM 9.8 mg/dL (8.6-10.2); CARBON DIOXIDE 24 mEQ/L (20-30); CHLORIDE 104 mEQ/L (98-107); CREATININE 1.2 mg/dL (0.5-0.9); HEMOLYSIS 3; POTASSIUM 4.4 mEQ/L (3.4-4.9); SODIUM 140 mEQ/L (135-145)
[2016-11-20 08:04] VITALS: BP 130/60
[2016-11-20] MEDS: Aspirin EC 81mg tab ORAL SCH (08:08)
[2016-11-20] MEDS: Carvedilol 12.5mg tab ORAL SCH (08:08)
[2016-11-20] MEDS: Lisinopril 20mg tab ORAL SCH (08:09)
[2016-11-20] MEDS: Brimonidine 0.2% Opth Sol BOTH EYES SCH (08:10)
--- NOTE | 2016-11-20 09:04 | Pulmonology Progress Note ---
Assessment/Plan Assessment/Plan ASSESSMENT TIA Hx of CVA HTN CAD Anemia of chronic disease likely chronic renal insufficiency Carotid stenosis PLAN OF CARE MS floor MRI brain no acute intracranial pathology, chronic age related chanegs carotid Duplex with minimal stenosis ECHO with pEF 60-65% and RVSP of 25 MRA head/neck- with Moderate atherosclerotic disease involving portions of the anterior and posterior intracerebral circulation. 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 BP management with BB and DANIE, optimize as needed lipid panel stable neuro follows continue ASA, Plavix, statin Depakote neuro cleared for dc EEG with mild diffuse slowing fall precautions PT/OT eval and RX monitor HH, at baseline, w/up c/w with anemia of chronic disease creat down to 1.2 w/up as outpatient likely chronic renal insufficiency dc plan today per PMD case discussed and evaluated by supervising physician Subjective Allergies: Coded Allergies: MOXIFLOXACIN (Verified Allergy, Unknown, 11/16/16) Subjective denies dizziness, headache, palpitations no chest pain, no SOB no new weakness ambulates to the bathroom and in the room Objective Last 24 Hour Vital Signs Date Time Temp Pulse Resp B/P (MAP) Pulse Ox O2 Delivery O2 Flow Rate FiO2 11/20/16 08:09 130/60 11/20/16 08:08 62 130/60 11/20/16 08:04 97.5 62 18 130/60 99 Room Air 11/20/16 04:00 97.7 65 18 143/79 95 Room Air 11/20/16 00:00 97.9 68 18 149/60 95 Room Air 11/19/16 21:03 69 139/67 11/19/16 20:00 97.5 62 18 132/58 99 Room Air 11/19/16 16:00 97.7 56 18 142/66 99 Room Air 11/19/16 11:58 97.7 62 18 128/67 98 Room Air Intake and Output 11/20/16 11/21/16 19:00 07:00 Intake Total 240 ml Balance 240 ml Intake Oral 240 ml # Voids 1 # Bowel Movements 1 Objective General Appearance: no acute distress, other - awake, alert, responsive elderly AA female in NAD HEENT: normocephalic, atraumatic Respiratory/Chest: lungs clear, no respiratory distress, no accessory muscle use Cardiovascular: normal peripheral pulses, normal rate, regularly irregular, no JVD Abdomen: normal bowel sounds, soft, non tender, non distended Genitourinary: normal external genitalia Extremities: pedal pulses normal, other - +1 edema BLE Neurologic/Psychiatric: alert, oriented x 3, responsive Laboratory Tests 11/20/16 04:45: White Blood Count 4.9, Red Blood Count 4.27, Hemoglobin 10.5L, Hematocrit 34.0L , Mean Corpuscular Volume 80, Mean Corpuscular Hemoglobin 24.6L, Mean Corpuscular Hemoglobin Concent 30.9L, Red Cell Distribution Width 16.7H, Platelet Count 318, Mean Platelet Volume 4.8L, Neutrophils (%) (Auto) 55.5, Lymphocytes (%) (Auto) 27.6, Monocytes (%) (Auto) 12.2H, Eosinophils (%) (Auto) 3.4H, Basophils (%) (Auto) 1.3, Sodium Level 140, Potassium Level 4.4, Chloride Level 104, Carbon Dioxide Level 24, Anion Gap 12, Blood Urea Nitrogen 31H, Creatinine 1.2H, Estimat Glomerular Filtration Rate , Glucose Level 95, Calcium Level 9.8 Current Medications Medications (Trade) Dose Ordered Sig/Jose Route PRN Reason Start Time Stop Time Status Last Admin Dose Admin Acetaminophen (Tylenol) 650 mg Q6H PRN ORAL Mild Pain/Temp > 100.5 11/17/16 21:00 12/17/16 20:59 Aspirin (Ecotrin) 81 mg DAILY ORAL 11/18/16 09:00 12/16/16 08:59 11/20/16 08:08 Atorvastatin Calcium (Lipitor) 80 mg BEDTIME ORAL 11/17/16 21:00 12/16/16 20:59 11/19/16 21:02 Brimonidine Tartrate (Alphagan) 1 drop DAILY BOTH EYES 11/18/16 09:00 12/16/16 08:59 11/20/16 08:10 Carvedilol (Coreg) 6.25 mg QHS ORAL 11/17/16 21:00 12/16/16 20:59 11/19/16 21:03 Carvedilol (Coreg) 12.5 mg DAILY ORAL 11/18/16 09:00 12/16/16 08:59 11/20/16 08:08 Clopidogrel Bisulfate (Plavix) 75 mg DAILY ORAL 11/18/16 09:00 12/16/16 08:59 11/20/16 08:09 Ferrous Sulfate (Feosol) 325 mg THREE TIMES A DAY ORAL 11/18/16 09:00 12/17/16 17:59 11/20/16 08:08 Furosemide (Lasix) 20 mg DAILY ORAL 11/18/16 09:00 12/16/16 08:59 11/20/16 08:09 Latanoprost (Xalatan) 1 drop BEDTIME BOTH EYES 11/17/16 21:00 12/16/16 20:59 11/19/16 21:03 Lisinopril (Prinivil) 40 mg DAILY ORAL 11/18/16 09:00 12/16/16 08:59 11/20/16 08:09 Ondansetron HCl (Zofran) 4 mg Q6H PRN IVP Nausea & Vomiting 11/17/16 21:00 12/17/16 20:59 Pantoprazole (Protonix) 40 mg ACBREAKFAST ORAL 11/18/16 06:30 12/16/16 06:29 11/20/16 06:52 Dago (Skipjs)Deb NP Nov 20, 2016 09:04
[2016-11-20 11:53] VITALS: BP 130/68
[2016-11-20 15:50] VITALS: BP 120/62
--- NOTE | 2016-11-20 17:11 | General Progress Note ---
Assessment/Plan Assessment/Plan Assessment - Iron deficiency anemia - negative prior GI w/u - OB (-) x 2 Recommendations - monitor CBC - conservative therapy - no plans for endscopy at this time Subjective Allergies: Coded Allergies: MOXIFLOXACIN (Verified Allergy, Unknown, 11/16/16) Subjective feels OK no new c/o ate well no abd pain on PO Fe Objective Last 24 Hour Vital Signs Date Time Temp Pulse Resp B/P (MAP) Pulse Ox O2 Delivery O2 Flow Rate FiO2 11/20/16 15:50 97.3 60 18 120/62 97 Room Air 11/20/16 11:53 97.0 54 18 130/68 98 Room Air 11/20/16 08:09 130/60 11/20/16 08:08 62 130/60 11/20/16 08:04 97.5 62 18 130/60 99 Room Air 11/20/16 04:00 97.7 65 18 143/79 95 Room Air 11/20/16 00:00 97.9 68 18 149/60 95 Room Air 11/19/16 21:03 69 139/67 11/19/16 20:00 97.5 62 18 132/58 99 Room Air Intake and Output 11/20/16 11/21/16 18:59 06:59 Intake Total 480 ml Balance 480 ml Intake Oral 480 ml # Voids 2 # Bowel Movements 1 Laboratory Tests 11/20/16 04:45: White Blood Count 4.9, Red Blood Count 4.27, Hemoglobin 10.5L, Hematocrit 34.0L , Mean Corpuscular Volume 80, Mean Corpuscular Hemoglobin 24.6L, Mean Corpuscular Hemoglobin Concent 30.9L, Red Cell Distribution Width 16.7H, Platelet Count 318, Mean Platelet Volume 4.8L, Neutrophils (%) (Auto) 55.5, Lymphocytes (%) (Auto) 27.6, Monocytes (%) (Auto) 12.2H, Eosinophils (%) (Auto) 3.4H, Basophils (%) (Auto) 1.3, Sodium Level 140, Potassium Level 4.4, Chloride Level 104, Carbon Dioxide Level 24, Anion Gap 12, Blood Urea Nitrogen 31H, Creatinine 1.2H, Estimat Glomerular Filtration Rate , Glucose Level 95, Calcium Level 9.8 Height (Feet): 5 Height (Inches): 3.00 Weight (Pounds): 188 Objective WDWN NCAT supple CTA RRR Soft ND NT (+) b/l edema non focal ROSE CM Nov 20, 2016 17:11
--- NOTE | 2016-11-20 17:45 | Internal Med Progress Note ---
Subjective Date of Service: Nov 20, 2016 Physician Name Anuel Nam Attending Physician Nicholas Simmons MD Current Medications Medications (Trade) Dose Ordered Sig/Jose Route PRN Reason Start Time Stop Time Status Last Admin Dose Admin Acetaminophen (Tylenol) 650 mg Q6H PRN ORAL Mild Pain/Temp > 100.5 11/17/16 21:00 12/17/16 20:59 Aspirin (Ecotrin) 81 mg DAILY ORAL 11/18/16 09:00 12/16/16 08:59 11/20/16 08:08 Atorvastatin Calcium (Lipitor) 80 mg BEDTIME ORAL 11/17/16 21:00 12/16/16 20:59 11/19/16 21:02 Brimonidine Tartrate (Alphagan) 1 drop DAILY BOTH EYES 11/18/16 09:00 12/16/16 08:59 11/20/16 08:10 Carvedilol (Coreg) 6.25 mg QHS ORAL 11/17/16 21:00 12/16/16 20:59 11/19/16 21:03 Carvedilol (Coreg) 12.5 mg DAILY ORAL 11/18/16 09:00 12/16/16 08:59 11/20/16 08:08 Clopidogrel Bisulfate (Plavix) 75 mg DAILY ORAL 11/18/16 09:00 12/16/16 08:59 11/20/16 08:09 Ferrous Sulfate (Feosol) 325 mg THREE TIMES A DAY ORAL 11/18/16 09:00 12/17/16 17:59 11/20/16 12:56 Furosemide (Lasix) 20 mg DAILY ORAL 11/18/16 09:00 12/16/16 08:59 11/20/16 08:09 Latanoprost (Xalatan) 1 drop BEDTIME BOTH EYES 11/17/16 21:00 12/16/16 20:59 11/19/16 21:03 Lisinopril (Prinivil) 40 mg DAILY ORAL 11/18/16 09:00 12/16/16 08:59 11/20/16 08:09 Ondansetron HCl (Zofran) 4 mg Q6H PRN IVP Nausea & Vomiting 11/17/16 21:00 12/17/16 20:59 Pantoprazole (Protonix) 40 mg ACBREAKFAST ORAL 11/18/16 06:30 12/16/16 06:29 11/20/16 06:52 Allergies: Coded Allergies: MOXIFLOXACIN (Verified Allergy, Unknown, 11/16/16) ROS Limited/Unobtainable: No Constitutional: Reports: no symptoms HEENT: Reports: no symptoms Cardiovascular: Reports: no symptoms Respiratory: Reports: no symptoms Gastrointestinal/Abdominal: Reports: no symptoms Genitourinary: Reports: no symptoms Neurologic/Psychiatric: Reports: no symptoms Subjective 86 YO F admitted with left facial weakness. Cover for Int Med-Dr Simmons. Objective Last Vital Signs Date Time Temp Pulse Resp B/P (MAP) Pulse Ox O2 Delivery O2 Flow Rate FiO2 11/20/16 15:50 97.3 60 18 120/62 97 Room Air Laboratory Tests Test 11/20/16 04:45 White Blood Count 4.9 K/UL (4.8-10.8) Red Blood Count 4.27 M/UL (4.20-5.40) Hemoglobin 10.5 G/DL (12.0-16.0) L Hematocrit 34.0 % (37.0-47.0) L Mean Corpuscular Volume 80 FL (80-99) Mean Corpuscular Hemoglobin 24.6 PG (27.0-31.0) L Mean Corpuscular Hemoglobin Concent 30.9 G/DL (32.0-36.0) L Red Cell Distribution Width 16.7 % (11.6-14.8) H Platelet Count 318 K/UL (150-450) Mean Platelet Volume 4.8 FL (6.5-10.1) L Neutrophils (%) (Auto) 55.5 % (45.0-75.0) Lymphocytes (%) (Auto) 27.6 % (20.0-45.0) Monocytes (%) (Auto) 12.2 % (1.0-10.0) H Eosinophils (%) (Auto) 3.4 % (0.0-3.0) H Basophils (%) (Auto) 1.3 % (0.0-2.0) Sodium Level 140 mEQ/L (135-145) Potassium Level 4.4 mEQ/L (3.4-4.9) Chloride Level 104 mEQ/L (98-107) Carbon Dioxide Level 24 mEQ/L (20-30) Anion Gap 12 (5-15) Blood Urea Nitrogen 31 mg/dL (7-23) H Creatinine 1.2 mg/dL (0.5-0.9) H Estimat Glomerular Filtration Rate mL/min (>60) Glucose Level 95 mg/dL (74-106) Calcium Level 9.8 mg/dL (8.6-10.2) Intake and Output 11/20/16 11/21/16 19:00 07:00 Intake Total 840 ml Balance 840 ml Intake Oral 840 ml # Voids 4 # Bowel Movements 1 Objective General Appearance: WD/WN, no apparent distress, alert EENT: PERRL/EOMI, normal ENT inspection Neck: non-tender, normal alignment, supple, normal inspection Cardiovascular: normal peripheral pulses, normal rate, regular rhythm, no gallop/murmur, no JVD Respiratory/Chest: chest wall non-tender, lungs clear, normal breath sounds, no respiratory distress, no accessory muscle use Abdomen: normal bowel sounds, non tender, soft, no organomegaly, no mass Extremities: normal range of motion 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 ?TIA? (3) Transient ischemic attack (TIA) Assessment & Plan: MRI brain and carotid duplex WNL. See neurology note. (4) HTN (hypertension) Assessment & Plan: Continue coreg and lisinopril. Assessment/Plan Discharge planning: home with caregiver Monday11/21/16 ANUEL NAM Nov 20, 2016 17:45
[2016-11-20 20:00] VITALS: BP 152/63
[2016-11-20] MEDS: Carvedilol 6.25mg Tab ORAL SCH (21:41)
[2016-11-20] MEDS: Atorvastatin 80mg tab ORAL SCH (21:42)
[2016-11-21] VITALS: BP 148/71
[2016-11-21 04:00] VITALS: BP 153/77
[2016-11-21 07:29] LABS: BASOPHILS % (AUTO) 1.3 % (0.0-2.0); EOSINOPHILS % (AUTO) 3.7 % (0.0-3.0); LYMPHOCYTES % (AUTO) 46.5 % (20.0-45.0); MEAN CORPUSCULAR HEMOGLOBIN 25.8 PG (27.0-31.0); MEAN CORPUSCULAR HGB CONC 32.2 G/DL (32.0-36.0); MEAN CORPUSCULAR VOLUME 80 FL (80-99); MEAN PLATELET VOLUME 4.8 FL (6.5-10.1); MONOCYTES % (AUTO) 10.1 % (1.0-10.0); NEUTROPHILS % (AUTO) 38.5 % (45.0-75.0); PLATELET COUNT 320 K/UL (150-450); RED BLOOD COUNT 4.25 M/UL (4.20-5.40); WHITE BLOOD COUNT 5.2 K/UL (4.8-10.8)
[2016-11-21 07:50] LABS: ANION GAP 12 (5-15); CALCIUM 9.6 mg/dL (8.6-10.2); CARBON DIOXIDE 24 mEQ/L (20-30); CHLORIDE 102 mEQ/L (98-107); CREATININE 1.3 mg/dL (0.5-0.9); HEMOLYSIS 3; POTASSIUM 4.3 mEQ/L (3.4-4.9); SODIUM 138 mEQ/L (135-145)
[2016-11-21 08:00] VITALS: BP 148/75
[2016-11-21] MEDS: Aspirin EC 81mg tab ORAL SCH (08:17)
[2016-11-21] MEDS: Lisinopril 20mg tab ORAL SCH (08:17)
[2016-11-21] MEDS: Carvedilol 12.5mg tab ORAL SCH (08:17)
[2016-11-21] MEDS: Brimonidine 0.2% Opth Sol BOTH EYES SCH (08:25)
--- NOTE | 2016-11-21 11:01 | GI Progress Note ---
Assessment/Plan Problems: (1) Iron deficiency anemia ICD Codes: D50.9 - Iron deficiency anemia, unspecified SNOMED: 04610633 (2) Facial weakness ICD Codes: R29.810 - Facial weakness SNOMED: 98335532 (3) Anemia ICD Codes: D64.9 - Anemia, unspecified SNOMED: 511157763 Status: stable Status Narrative Discussed with Dr. Holguin. Assessment/Plan Assessment - Iron deficiency anemia - negative prior GI w/u - OB (-) x 2 Recommendations supportive care / conservative management iron deficiency >> cont FeSO4 bowel regime >> colace + miralax ATC dietary consult for education ppi cardiac diet fu labs no plans for endoscopy at this time pt on Plavix (note this must be dc min 48 hours prior any GI procedures) Subjective Subjective left side numbness Objective Last 24 Hour Vital Signs Date Time Temp Pulse Resp B/P (MAP) Pulse Ox O2 Delivery O2 Flow Rate FiO2 11/21/16 08:17 153/77 11/21/16 08:17 63 153/77 11/21/16 08:00 98.2 69 18 148/75 96 Room Air 11/21/16 04:00 97.7 63 18 153/77 98 Room Air 11/21/16 00:00 97.3 65 18 148/71 96 Room Air 11/20/16 21:41 61 152/63 11/20/16 20:00 97.7 61 18 152/63 99 Room Air 11/20/16 15:50 97.3 60 18 120/62 97 Room Air 11/20/16 11:53 97.0 54 18 130/68 98 Room Air Intake and Output 11/21/16 11/22/16 19:00 07:00 Intake Total 240 ml Balance 240 ml Intake Oral 240 ml # Voids 1 Laboratory Tests Test 11/21/16 05:30 White Blood Count 5.2 K/UL (4.8-10.8) Red Blood Count 4.25 M/UL (4.20-5.40) Hemoglobin 11.0 G/DL (12.0-16.0) L Hematocrit 34.1 % (37.0-47.0) L Mean Corpuscular Volume 80 FL (80-99) Mean Corpuscular Hemoglobin 25.8 PG (27.0-31.0) L Mean Corpuscular Hemoglobin Concent 32.2 G/DL (32.0-36.0) Red Cell Distribution Width 17.0 % (11.6-14.8) H Platelet Count 320 K/UL (150-450) Mean Platelet Volume 4.8 FL (6.5-10.1) L Neutrophils (%) (Auto) 38.5 % (45.0-75.0) L Lymphocytes (%) (Auto) 46.5 % (20.0-45.0) H Monocytes (%) (Auto) 10.1 % (1.0-10.0) H Eosinophils (%) (Auto) 3.7 % (0.0-3.0) H Basophils (%) (Auto) 1.3 % (0.0-2.0) Sodium Level 138 mEQ/L (135-145) Potassium Level 4.3 mEQ/L (3.4-4.9) Chloride Level 102 mEQ/L (98-107) Carbon Dioxide Level 24 mEQ/L (20-30) Anion Gap 12 (5-15) Blood Urea Nitrogen 32 mg/dL (7-23) H Creatinine 1.3 mg/dL (0.5-0.9) H Estimat Glomerular Filtration Rate mL/min (>60) Glucose Level 86 mg/dL (74-106) Calcium Level 9.6 mg/dL (8.6-10.2) Height (Feet): 5 Height (Inches): 3.00 Weight (Pounds): 188 General Appearance: no apparent distress, alert Cardiovascular: normal rate Respiratory/Chest: normal breath sounds, no respiratory distress Abdominal Exam: normal bowel sounds, non tender, soft Extremities: other - left facial numbness Brit Morin N.P. Nov 21, 2016 11:01
[2016-11-21 11:53] VITALS: BP 149/69
--- NOTE | 2016-11-21 12:47 | Neurology Progress Note ---
Interim History Interim History ROS Limited/Unobtainable: No Complaints: ok Events: in am L face v1-v2 area pulling sensation fear of stroke Objective Physical Exam Last Vital Signs Date Time Temp Pulse Resp B/P (MAP) Pulse Ox O2 Delivery O2 Flow Rate FiO2 11/21/16 11:53 97.5 62 18 149/69 97 Room Air Laboratory Tests Test 11/21/16 05:30 White Blood Count 5.2 K/UL (4.8-10.8) Red Blood Count 4.25 M/UL (4.20-5.40) Hemoglobin 11.0 G/DL (12.0-16.0) L Hematocrit 34.1 % (37.0-47.0) L Mean Corpuscular Volume 80 FL (80-99) Mean Corpuscular Hemoglobin 25.8 PG (27.0-31.0) L Mean Corpuscular Hemoglobin Concent 32.2 G/DL (32.0-36.0) Red Cell Distribution Width 17.0 % (11.6-14.8) H Platelet Count 320 K/UL (150-450) Mean Platelet Volume 4.8 FL (6.5-10.1) L Neutrophils (%) (Auto) 38.5 % (45.0-75.0) L Lymphocytes (%) (Auto) 46.5 % (20.0-45.0) H Monocytes (%) (Auto) 10.1 % (1.0-10.0) H Eosinophils (%) (Auto) 3.7 % (0.0-3.0) H Basophils (%) (Auto) 1.3 % (0.0-2.0) Sodium Level 138 mEQ/L (135-145) Potassium Level 4.3 mEQ/L (3.4-4.9) Chloride Level 102 mEQ/L (98-107) Carbon Dioxide Level 24 mEQ/L (20-30) Anion Gap 12 (5-15) Blood Urea Nitrogen 32 mg/dL (7-23) H Creatinine 1.3 mg/dL (0.5-0.9) H Estimat Glomerular Filtration Rate mL/min (>60) Glucose Level 86 mg/dL (74-106) Calcium Level 9.6 mg/dL (8.6-10.2) General: well developed, no acute distress Head: atraumatic Neck: no rigidity Neurologic Exam Mental Status: awake, alert, oriented x4, normal cognition, good mathematical skills, normal recent memory, normal remote memory, preserved visuospatial function - anxious fear of TIA/Stroke Speech: normal speech, no dysarthia Language: normal language, no aphasia Cranial Nerve II: fundus normal, visual church, no papilledema Cranial Nerves III, IV, : PERRLA, EOMI, pupils Cranial Nerve V: normal facial sensations, temporales function normal, masseters function normal, pterygoids function normal Cranial Nerve VII: no facial asymmetry, normal facial expressions Cranial Nerve VIII: normal hearing, no nystagmus Cranial Nerve IX: normal palate elevation, gag response Cranial Nerve X: no voice hoarseness Cranial Nerve XI: SCM symmetric, trapezii function normal Cranial Nerve XII: tongue midline, no tongue atrophy/fasciculations Motor System: normal muscle tone, strength 5/5, no involuntary movement, no muscle wasting Sensory: normal pinprick, normal light touch, normal position sense, normal graphesthesia Coordination: normal finger to nose bilaterally, normal heel to cali bilaterally, negative Romberg test Deep Tendon Reflexes: 1+ bicep (L), 1+ bicep (R), 1+ tricep (L), 1+ tricep (R) , 1+ brachioradialis (L), 1+ brachioradialis (R), 1+ knee (L), 1+ knee (R), 1+ ankle (L), 1+ ankle (R) Reflexes: flexor plantar (L), flexor plantar (R) Stance: normal Gait: stable, normal regular, heel + toe gait Impression/Recommendations Problems: (1) Transient ischemic attack (TIA) (2) intermittent L face periorbital muscle contraction type episodes.doubt TIA (3) Anxiety about health Status: stable Recommendations # [id number] asa/plavix/statins depakote 250mg bid neuro stable ok d/c xanax for attacks OSVALDO LE Nov 21, 2016 12:47
[2016-11-21] MEDS ORDERED: ALPRAZolam 0.5mg tab ORAL ONE (13:00)
[2016-11-21] MEDS ORDERED: ALPRAZolam 0.5mg tab ORAL PRN (13:00)
[2016-11-21 16:15] VITALS: BP 149/72
--- NOTE | 2016-11-21 22:50 | Pulmonology Progress Note ---
Assessment/Plan Problems: (1) Acute encephalopathy (2) Cerebrovascular accident (3) Hx of CABG (4) HTN (hypertension) (5) Transient ischemic attack (TIA) (6) Uncontrolled hypertension (7) Anemia Assessment/Plan pt/ot monitor bp neuro consult appreciated dc planning in process Subjective ROS Limited/Unobtainable: No Constitutional: Reports: no symptoms HEENT: Repors: no symptoms Respiratory: Reports: no symptoms Allergies: Coded Allergies: MOXIFLOXACIN (Verified Allergy, Unknown, 11/16/16) Objective Last 24 Hour Vital Signs Date Time Temp Pulse Resp B/P (MAP) Pulse Ox O2 Delivery O2 Flow Rate FiO2 11/21/16 16:15 97.7 65 18 149/72 98 Room Air 11/21/16 11:53 97.5 62 18 149/69 97 Room Air 11/21/16 08:17 153/77 11/21/16 08:17 63 153/77 11/21/16 08:00 98.2 69 18 148/75 96 Room Air 11/21/16 04:00 97.7 63 18 153/77 98 Room Air 11/21/16 00:00 97.3 65 18 148/71 96 Room Air Intake and Output 11/21/16 11/22/16 19:00 07:00 Intake Total 240 ml Balance 240 ml Intake Oral 240 ml # Voids 2 # Bowel Movements 1 General Appearance: WD/WN HEENT: normocephalic, atraumatic Respiratory/Chest: chest wall non-tender, lungs clear Breasts: no masses Cardiovascular: normal peripheral pulses Abdomen: normal bowel sounds, soft, non tender Genitourinary: normal external genitalia Extremities: no cyanosis, no clubbing Skin: no ulcers Laboratory Tests 11/21/16 05:30: White Blood Count 5.2, Red Blood Count 4.25, Hemoglobin 11.0L, Hematocrit 34.1L , Mean Corpuscular Volume 80, Mean Corpuscular Hemoglobin 25.8L, Mean Corpuscular Hemoglobin Concent 32.2, Red Cell Distribution Width 17.0H, Platelet Count 320, Mean Platelet Volume 4.8L, Neutrophils (%) (Auto) 38.5L, Lymphocytes (%) (Auto) 46.5H, Monocytes (%) (Auto) 10.1H, Eosinophils (%) (Auto ) 3.7H, Basophils (%) (Auto) 1.3, Sodium Level 138, Potassium Level 4.3, Chloride Level 102, Carbon Dioxide Level 24, Anion Gap 12, Blood Urea Nitrogen 32H, Creatinine 1.3H, Estimat Glomerular Filtration Rate , Glucose Level 86, Calcium Level 9.6 ADARSH SHEPPARD Nov 21, 2016 22:50
--- NOTE | 2016-11-22 08:34 | Discharge Summary ---
Discharge Summary Hospital Course Date of Admission Nov 15, 2016 at 22:55 Date of Discharge Nov 21, 2016 at 17:13 Admitting Diagnosis HPI Ashley Gee is a 86 year old female who was admitted on Nov 15, 2016 at 22: 55 for Transient Cerebral Ischemia Hospital Course dc summary #[id number] Discharge Medications Continued Medications: Aspirin* (Aspir 81*) 81 Mg Tablet.dr 81 MG ORAL DAILY, TAB Brimonidine Tartrate* (Alphagan*) 5 Ml Drops 1 DROP BOTH EYES DAILY, ML Carvedilol (Coreg) 12.5 Mg Tablet 12.5 MG ORAL, TAB Clopidogrel Bisulfate* (Plavix*) 75 Mg Tablet 75 MG ORAL DAILY, TAB Furosemide* (Lasix*) 20 Mg Tablet 20 MG ORAL DAILY, TAB Lansoprazole* (Prevacid*) 30 Mg Capsule.dr 30 MG ORAL DAILY, CAP Latanoprost* (Xalatan*) 2.5 Ml Drops 1 DROP BOTH EYES BEDTIME, ML 0 Refills Lisinopril* (Lisinopril*) 40 Mg Tablet 40 MG ORAL DAILY, TAB Vitamin D (Vitamin D3) 400 Unit Tablet 1000 UNITS ORAL DAILY, TAB Discharge Discharge Disposition Patient was discharged to Home () Discharge Diagnoses: Loza (Vanchtein),Deb FORD Nov 22, 2016 08:34
--- NOTE | 2016-11-23 12:40 | Discharge Summary 2 SIG ---
DATE OF ADMISSION: 11/15/2016 DATE OF DISCHARGE: 11/21/2016 REASON FOR ADMISSION: 86 years old female, presented with complaint of left facial weakness. The patient was initially presented to [facility]. The patient complained of several hour of weakness of the left side of the face. She reported that face did not look symmetrical in the mirror. The patient was transferred to [facility] for insurance purposes. The patient has a recent history of TIA in July 2016 and treated at [facility], no residual effects. ADMITTING DIAGNOSES: 1. Left facial weakness, 2. Possible transient ischemic attack. 3. History of cerebrovascular accident and transient ischemic attack. 4. Coronary artery disease with myocardial infarction and coronary artery bypass graft. 5. Hypertension. Hospital Stay: The patient was admitted. Neurology consult was requested. MRI of the brain revealed chronic age-related changes and was negative for acute intracranial bleeding, mass effect, or infarct. Tiny old lacunar infarct was seen within the periphery of the right cerebral hemisphere. Echocardiogram revealed preserved ejection fraction of 60% to 65%, mild left ventricular hypertrophy, and right ventricular systolic pressure of 25. Carotid Duplex revealed minimal degree of stenosis 40% in internal carotid arteries bilaterally. Neurologist also ordered MRI and MRA of the head and neck, which revealed moderate atherosclerotic disease involving portion of the anterior and posterior intracerebral circulation. 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 Neurologist also ordered an electroencephalogram, which was abnormal and revealed presence of mild diffuse slowing, which may correspond to toxic metabolic derangement or diffuse structural lesion. Neurologist closely followed. Troponin x2 were negative. Telemetry was negative. Sinus rhythm. Lipid panel was stable. According to neurologist, the patient had intermittent left face periorbital muscle contraction type episode. He recommended to continue aspirin, Plavix, and statin, started the patient on Depakote and Xanax as needed for anxiety. Neurology cleared for discharge. Blood pressure was managed with current regimen of antihypertensive, i.e., beta-[place] and DANIE, and was stable. Fall precaution were maintained. The patient was working with physical and occupational therapists. Hemoglobin and hematocrit were closely monitored. GI followed. Stool OB x2 was negative. Anemia workup revealed anemia of chronic disease and iron deficiency anemia. Per GI, no endoscopy was planned . GI specialist recommended conservative treatment. Monitor hemoglobin and hematocrit, remained on the baseline. The patient had elevated creatinine - 1.2. Renal parameters were monitored and stayed at the baseline, no change with IV fluids, likely chronic renal insufficiency. Recommended workup as outpatient. The patient was cleared for discharge. The patient was discharged home. DISCHARGE DIAGNOSES: 1. Transient ischemic attack. 2. History of cerebrovascular accident. 3. Left face periorbital muscle contraction type episode. 4. Hypertension. 5. Coronary artery disease with a history of myocardial infarction and coronary artery bypass graft. 6. Anxiety. 7. Iron-deficiency anemia. 8. Anemia of chronic disease. 9. Chronic renal insufficiency. 10. Carotid stenosis. DISCHARGE MEDICATIONS: See medication reconciliation list. Discharge Instructions: The patient was discharged home. The patient to follow up with the primary medical doctor next week. Nicholas Simmons M.D. I Deb TopetePhelps Memorial HospitalAddison N.PNick DR: Luis JOB#: [id number] CC: [email or web address]
== END 2016-11-21 17:13 | disposition home or self-care (01) | DRG 69 ==
LOC: 2E 22:55 → 4W 11-17 20:19
DX: G45.9 Transient cerebral ischemic attack, unspecified (principal); G93.40 Encephalopathy, unspecified; E11.9 Type 2 diabetes mellitus without complications; D63.8 Anemia in other chronic diseases classified elsewhere; D50.9 Iron deficiency anemia, unspecified; I12.9 Hypertensive chronic kidney disease with stage 1 through stage 4 chronic kidney disease, or unspecified chronic kidney disease; I65.29 Occlusion and stenosis of unspecified carotid artery; Z95.1 Presence of aortocoronary bypass graft; Z86.73 Personal history of transient ischemic attack (TIA), and cerebral infarction without residual deficits; I25.10 Atherosclerotic heart disease of native coronary artery without angina pectoris; F06.4 Anxiety disorder due to known physiological condition; I25.2 Old myocardial infarction; F41.9 Anxiety disorder, unspecified; N18.9 Chronic kidney disease, unspecified; Z88.1 Allergy status to other antibiotic agents; Z79.02 Long term (current) use of antithrombotics/antiplatelets
CPT/HCPCS: 36415; 70544; 70551; 80048; 80053; 80061; 82270; 82378; 82607; 82746; 83540; 83550; 83615; 83735; 84100; 84484; 85007; 85025; 85044; 85060; 85610; 85651; 85730; 93005; 93306; 93880; 95819